=== PATIENT | female | born 1950 | race Caucasian/White ===

== ENCOUNTER 2017-08-23 14:22 | Inpatient (IN) | payer OTHER ==
[~2017-08-23] VITALS: Ht 157.5 cm; Wt 105.7 kg
[2017-08-23 14:29] VITALS: BP 157/78
--- NOTE | 2017-08-23 14:30 | NUR ---
Patient ambulated to bed 08.
--- NOTE | 2017-08-23 14:34 | NUR ---
67/F BIB DAUGHTER IN LAW PT REFERRED TO ER PER PCP FOR EVALUATION OF CHEST PAIN X1 DAY. PT STS FELT ACUTE SHARP CHEST PAIN TO MID CHEST THEN TO LEFT CHEST LAST NIGHT WHILE GETTING READY FOR BED. PT DENIES PAIN AT THIS TIME. VSS. BG 64 MG/DL. ER MD MADE AWARE. ORANGE JUICE GIVEN TO PT. LUNG SOUNDS DIMISHED. ANASARCA NOTED WITH 2+ EDEMA TO BLE. HX DM, HTN, CKD, S/P CVA 5 MONTHS AGO.
--- NOTE | 2017-08-23 14:50 | NUR ---
Dr. Banegas evaluating patient at bedside.
[2017-08-23] MEDS ORDERED: ASPIRIN 81 MG TAB.CHEW PO ONE (14:55)
--- NOTE | 2017-08-23 15:07 | NUR ---
XRAY at bedside.
[2017-08-23 15:12] LABS: BASOPHILS # (AUTO) 0.2 K/uL (0.00-0.22); BASOPHILS % (AUTO) 2.2 % (0.0-2.0); EOSINOPHILS # (AUTO) 0.4 K/uL (0-0.4); HEMATOCRIT 33.3 % (36-48); HEMOGLOBIN 10.9 g/dL (12.0-16.0); LYMPHOCYTES # (AUTO) 2.4 K/uL (2.5-16.5); LYMPHOCYTES % (AUTO) 22.3 % (20.5-51.1); MEAN CORPUSCULAR HEMOGLOBIN 26 pg (27-31); MEAN CORPUSCULAR HGB CONC 33 g/dL (33-37); MEAN CORPUSCULAR VOLUME 80 fL (80-94); MONOCYTES # (AUTO) 0.9 K/uL (0.8-1.0); MONOCYTES % (AUTO) 8.1 % (1.7-9.3); NEUTROPHILS # (AUTO) 6.9 K/uL (1.8-7.7); NEUTROPHILS % (AUTO) 63.4 % (42.2-75.2); PLATELET COUNT (AUTO) 322 K/uL (140-450); RED BLOOD CELL COUNT(AUTO) 4.19 MIL/uL (4.20-5.40); RED CELL DISTRIBUTION WIDTH 16.7 % (11.6-13.7); WHITE BLOOD COUNT (AUTO) 10.8 K/uL (4.8-10.8)
[2017-08-23 15:25] LABS: ANION GAP 13.5 (8-16); CARBON DIOXIDE 20.6 mmol/L (21-32); CREATININE 2.6 mg/dL (0.6-1.3); POTASSIUM 5.1 mmol/L (3.5-5.1)
[2017-08-23 15:33] LABS: ALBUMIN 2.5 g/dL (3.4-5.0); TOTAL BILIRUBIN 0.1 mg/dL (0.0-1.0)
[2017-08-23] MEDS ORDERED: LORazepam 2 MG/ML VIAL IVP PRN (15:45)
[2017-08-23] MEDS ORDERED: INSULIN LISPRO SLIDING SCALE 100 UNITS/ML VIAL SUBQ PRN (15:45)
[2017-08-23] MEDS ORDERED: ONDANSETRON 4 MG/2 ML VIAL IVP PRN (15:45)
[2017-08-23] MEDS ORDERED: DEXTROSE 50% 50 ML SYR IVP PRN (15:45)
[2017-08-23] MEDS ORDERED: ACETAMINOPHEN 325 MG TAB PO PRN (15:45)
[2017-08-23] MEDS ORDERED: HYDROcodone/APAP 5/325 MG 1 TAB TAB PO PRN (15:45)
[2017-08-23] MEDS ORDERED: METO25TA PO (15:58)
[2017-08-23] MEDS ORDERED: FURO-572 PO (15:58)
[2017-08-23] MEDS ORDERED: GLIP5TAB4 PO (15:58)
[2017-08-23] MEDS ORDERED: AMLO10TA PO (15:58)
[2017-08-23] MEDS ORDERED: WARF1TAB PO (15:58)
--- NOTE | 2017-08-23 16:20 | NUR ---
Patient will be admitted to care of DR. RIZO. Admited to 124-B. Will go to room 124-B. Belongings list completed. Report to LIV HERNADEZ.
[2017-08-23 16:30] VITALS: BP 141/64
--- NOTE | 2017-08-23 16:30 | NUR ---
RECEIVED PT FROM ER ASSISTED BY ER NURSE PER CARRIE. ASSISTED PT WITH WALKER GOING TO HER BED. PT AMBULATED STEADILY WITH WALKER, WITH STANDBY ASSIST. PT LAID ON BED SAFELY AND COMFORTABLY. GENERALIZED EDEMA NOTED. NO SOB NOTED. DENIES ANY PAIN RO DISCOMFORT AT THIS TIME. PT AMBULATORY WITH WALKER. PT PLACED ON FALL RISK PRECAUTION. SAFETY PRECAUTION IN PLACE. CALL LIGHT WITHIN REACH.
[2017-08-23] MEDS: NACL 0.9% 1,000 ML IV SCH (16:45)
[2017-08-23] MEDS: BLOOD GLUCOSE MONITORING 1 DEV DEV FS SCH ×2 (16:53→21:03)
--- NOTE | 2017-08-23 19:28 | NUR ---
PT KEPT CLEAN, DRY AND COMFORTABLE, NEEDS ATTENDED. ENDORSED TO NEXT SHIFT, PT ON STABLE CONDITION, FOR CONTINUITY OF CARE.
--- NOTE | 2017-08-23 19:35 | NUR ---
RECEIVED REPORT FROM DAY RN. PATIENT AWAKE ALERT ORIENTED X4, NO S/S OF ACUTE DISTRESS NOTED, RESPIRATION EVEN AND UNLABORED, AND ON O2 NC 2L. IV PATENT AND INTACT, INFUSING NS AT 75ML/HR. NOTED PATIENT WEARING HER OWN SOCKS, OFFERED HOSPITAL NON-SLIP SOCKS, PATIENT REFUSED TAKING OFF HER OWN SOCKS AND STATED," MY FEET ARE VERY DRY, I DON'T WANT TO TAKE OFF MY SOCKS, I CAN WEAR THE HOSPITAL SOCKS OVER MY OWN SOCKS." EDUCATED PATIENT THAT PER HOSPITAL POLICY I NEED TO CHECK HER SKIN. PATIENT STILL REFUSED AND STATED," NO, I DON'T WANT TO TAKE OFF MY SOCKS, I DON'T WANT YOU TAKE OFF MY SOCKS." INFORMED PATIENT TO CALL FOR ASSISTANCE WHENEVER SHE NEEDS TO USE RESTROOM. PATIENT VERBALIZED UNDERSTANDING. CALL LIGHT WITHIN REACH, SAFETY MEASURE ENSURED, WILL CONTINUE TO MONITOR.
[2017-08-23 20:00] VITALS: BP 127/103
[2017-08-23] MEDS: METOPROLOL 25 MG TAB PO SCH (21:08)
[2017-08-23] MEDS: amLODIPine 5 MG TAB PO SCH (21:09)
[2017-08-23 23:29] LABS: CREATINE KINASE MB 0.6 ng/mL (0-3.6)
[2017-08-24] VITALS (7 sets, daily range): BP systolic 90–181; BP diastolic 62–88
[2017-08-24] MEDS: HYDROcodone/APAP 5/325 MG 1 TAB TAB PO PRN ×2 (00:01→14:51)
--- NOTE | 2017-08-24 00:32 | NUR ---
PATIENT USED RESTROOM, AND STATED," I WANT TO SIT ON THE CHAIR FOR A LITTLE BIT." SITTING ON THE CHAIR ABOUT 20 MINS, WHILE ASSISTING PATIENT BACK TO THE BED, EDEMA BOTH FEET PITTING +2 NOTED, ELEVATED BOTH LEGS ON TWO PILLOWS. WILL CONTINUE TO MONITOR.
--- NOTE | 2017-08-24 00:33 | NUR ---
PATIENT BP 181/81, HR 71, PAGED DR. RIZO. WILL CONTINUE TO MONITOR.
--- NOTE | 2017-08-24 00:40 | NUR ---
ARUN CALLED BACK, INFORMED DR DIAS THAT BP 181/81, HR 71, RECEIVED ORDER OF HYDRALAZINE 25MG, PO, ONCE. ORDER READ BACK, DR. DIAS CONFIRMED.
[2017-08-24] MEDS ORDERED: hydrALAZINE 25 MG TAB PO SCH ×2 (01:00→09:00)
--- NOTE | 2017-08-24 01:51 | NUR ---
BP 145/71, HR 61. PATIENT IS SLEEPING AT THIS TIME. NO S/S OF ACUTE DISTRESS NOTED, RESPIRATION EVEN AND UNLABORED, CALL LIGHT WITHIN REACH, SAFETY MEASURE ENSURED, WILL CONTINUE TO MONITOR.
--- NOTE | 2017-08-24 02:58 | NUR ---
NO CHANGE IN CONDITION, NO S/S OF DISTRESS NOTED, RESPIRATION EVEN AND UNLABORED, REPOSITIONED PATIENT WITH THE APPLICATIONS SYSTEM ANALYST, CALL LIGHT WITHIN REACH, SAFETY MEASURE ENSURED ,WILL CONTINUE TO MONITOR.
--- NOTE | 2017-08-24 04:27 | NUR ---
PATIENT IS SLEEPING, EASY TO AROUSE, NO S/S OF DISTRESS NOTED, RESPIRATION EVEN AND UNLABORED, CALL LIGHT WITHIN REACH, SAFETY MEASURE ENSURED ,WILL CONTINUE TO MONITOR.
[2017-08-24] MEDS: NACL 0.9% 1,000 ML IV SCH ×2 (04:52→18:24)
[2017-08-24] MEDS: BLOOD GLUCOSE MONITORING 1 DEV DEV FS SCH ×4 (06:37→21:07)
[2017-08-24 06:43] LABS: BASOPHILS # (AUTO) 0.2 K/uL (0.00-0.22); BASOPHILS % (AUTO) 2.2 % (0.0-2.0); EOSINOPHILS # (AUTO) 0.6 K/uL (0-0.4); EOSINOPHILS % (AUTO) 6.2 % (0.0-4.0); HEMATOCRIT 29.6 % (36-48); HEMOGLOBIN 9.3 g/dL (12.0-16.0); LYMPHOCYTES # (AUTO) 2.1 K/uL (2.5-16.5); LYMPHOCYTES % (AUTO) 22.9 % (20.5-51.1); MEAN CORPUSCULAR HEMOGLOBIN 25 pg (27-31); MEAN CORPUSCULAR HGB CONC 32 g/dL (33-37); MEAN CORPUSCULAR VOLUME 80 fL (80-94); MONOCYTES # (AUTO) 0.8 K/uL (0.8-1.0); NEUTROPHILS # (AUTO) 5.3 K/uL (1.8-7.7); NEUTROPHILS % (AUTO) 59.7 % (42.2-75.2); PLATELET COUNT (AUTO) 277 K/uL (140-450); RED BLOOD CELL COUNT(AUTO) 3.72 MIL/uL (4.20-5.40); RED CELL DISTRIBUTION WIDTH 16.7 % (11.6-13.7)
--- NOTE | 2017-08-24 07:01 | NUR ---
NO CHANGE IN CONDITION, NO S/S OF DISTRESS NOTED, RESPIRATION EVEN AND UNLABORED, CALL LIGHT WITHIN REACH, SAFETY MEASURE ENSURED ,WILL CONTINUE TO MONITOR.
[2017-08-24 07:07] LABS: ANION GAP 10.1 (8-16); CARBON DIOXIDE 21.3 mmol/L (21-32); CREATININE 2.5 mg/dL (0.6-1.3); MAGNESIUM 1.9 mg/dL (1.8-2.4); POTASSIUM 5.4 mmol/L (3.5-5.1); TOTAL BILIRUBIN 0.1 mg/dL (0.0-1.0)
[2017-08-24 07:20] LABS: CREATINE KINASE MB 0.5 ng/mL (0-3.6)
--- NOTE | 2017-08-24 07:35 | NUR ---
ENDORSED PLAN OF CARE TO DAY RN. PATIENT IS IN STABLE CONDITION. NO S/S OF DISTRESS NOTED.
--- NOTE | 2017-08-24 07:40 | NUR ---
RECEIVED REPORT FROM WASTE WATER OPERATOR NURSE PT IS RESTING IN BED, A/OX4, AMBULATES WITH WALKER, PT HAS IV ON THE RT AC, PATENT, INTACT, FLUSHING WELL, PT IS ON O2 2L NC, DRYNESS ON BILATERAL LOWER FEET, BILATERAL LOWER EXT. PITTING EDEMA, NO S/S OF RESPIRATORY DISTRESS OR DISCOMFORT NOTED, DISCUSSED PLAN OF CARE WITH PT, PT VERBALIZED UNDERSTANDING, SAFETY/FALL PRECAUTIONS ARE IN PLACE, CALL LIGHT WITHIN REACH, WILL CONTINUE TO MONITOR.
[2017-08-24] MEDS ORDERED: REGADENOSON 0.4 MG/5 ML SYR IV SCH (08:55)
[2017-08-24] MEDS ORDERED: SODIUM POLYSTYRENE 15 GM/60 ML UDBTL PO SCH (09:00)
[2017-08-24] MEDS ORDERED: FUROSEMIDE 20 MG TAB PO SCH (09:00)
[2017-08-24] MEDS: ASPIRIN 81 MG TAB.CHEW PO SCH (09:06)
[2017-08-24] MEDS: METOPROLOL 25 MG TAB PO SCH ×2 (09:06→21:08)
--- NOTE | 2017-08-24 09:09 | NUR ---
PATIENT HAS BEEN SCREENED AND CATEGORIZED HIGH NUTRITION RISK. PATIENT WILL BE SEEN WITHIN 1-2 DAYS OF ADMISSION. 08/24/17-08/25/[address]
--- NOTE | 2017-08-24 09:44 | NUR ---
I CALLED DR. KULKARNI TO LET HIM KNOW DR. RIZO HAD ORDERED A LEXISCAN/STRESS TEST ORDERED TO HAVE DONE TODAY. PER DR. KULKARNI CONFIRM WITH SITE SPECIALIST AND ASK IF THEY ARE AVAILABLE FOR TODAY BETWEEN 12:30-12:45PM.
--- NOTE | 2017-08-24 10:20 | NUR ---
RECEIVED PHONE CALL FROM REINIER HERNANDEZ AT [facility]. PER DAVID SHE IS NOT AVAILABLE TO COME IN TO DO THE LEXISCAN TEST TODAY AND SHE ALSO WOULD NOT HAVE THE DOSE AVAILABLE UNTIL AFTER 1330 TODAY.
--- NOTE | 2017-08-24 10:38 | NUR ---
PATIENT STATED SHE WAS FEELING NAUSEAS AND FELT LIKE SHE NEEDED TO VOMIT. PT WAS MEDICATED WITH ZOFRAN FOR NAUSEA AND VOMITING AT THIS TIME.
--- NOTE | 2017-08-24 10:55 | NUR ---
PAGED DR. RIZO TO LET HER KNOW THERE WAS NOT A SPIKE MACHINE OPERATOR AVAILABLE TO COME IN AND DO THE LEXISCAN TEST DONE TODAY. I ALSO LET HER KNOW THE PATIENT WAS FEELING NAUSEAS/DIZZY AND WAS REQUESTING TO HAVE SOMETHING TO EAT. PER DR. RIZO PUT PT ON [facility] DIET FOR NOW. DR. RIZO REQUEST TO SPEAK TO CHARGE NURSE.
--- NOTE | 2017-08-24 11:03 | NUR ---
08/24/17 RD INITIAL ASSESSMENT COMPLETED PLEASE REFER TO NUTRITION ASSESSMENT UNDER CARE ACTIVITY FOR ESTIMATED NUTRITIONAL NEEDS. 1. WHEN MEDICALLY FEASIBLE, RESUME PO DIET - RENAL 60G PROTEIN, 60G CONSISTENT CARBOHYDRATE DIET 2. PROVIDE NUTRITION THERAPY EDUCATION NEEDED 3. RD TO FOLLOW-UP 2-3 DAYS, HIGH RISK DIE[address]
--- NOTE | 2017-08-24 11:30 | NUR ---
PAGED DR. RIZO TO LET HER KNOW THE PATIENT IS REFUSING TO HAVE LEXISCAN DONE TODAY, PT STATED SHE IS FEELING NAUSEAS AND DIZZY SO WOULD RATHER HAVE IT DONE TOMORROW. I ALSO SPOKED TO AYESHA, HYDROMETEOROLOGIST TO LET HER KNOW PATIENT WOULD RATHER HAVE LEXISCAN DONE TOMORROW. AYESHA, SAID SHE HAD INFORMED DR. RIZO THE PATIENT WAS REFUSING TO HAVE LEXISCAN DONE TODAY.
--- NOTE | 2017-08-24 13:17 | NUR ---
[address] RIZO REGARDING IF LEXISCAN WILL BE DONE TODAY. INFORMED HER I WILL CONTACT RADIOLOGY. PER DENISE IN RADIOLOGY SHE WILL CONTACT [facility] REGARDING SCHEDULE. 1130 INFORMED BY NURSING THAT PT IS REFUSING LEXISCAN TODAY SHE IS C/O NAUSEA AND DIZZINESS. PER DENISE IN RADIOLOGY SHE HAS PT SCHEDULED TOMORROW AT 11AM. DR RIZO INFORMED OF PTS REFUSAL OF SCAN TODAY DUE TO NAUSEA AND DIZZINESS AND THAT LEXISCAN IS SCHEDULED TOMORROW AT 11AM.
--- NOTE | 2017-08-24 13:22 | NUR ---
FAXED INITIAL REVIEW TO [facility] [phone] PHONE [phone]
--- NOTE | 2017-08-24 16:00 | NUR ---
PAGED DR. RIZO TO LET HER KNOW THE PATIENT'S BLOOD PRESSURE HAS BEEN 181/88. 181/81 AND HAS NOT CAME DOWN. PER DR. RIZO CHANGE THE HYDRALAZINE 25MG ORDER TO TID INSTEAD OF BID AND GIVE ONE DOSE NOW.
[2017-08-24] MEDS: hydrALAZINE 25 MG TAB PO SCH (17:21)
--- NOTE | 2017-08-24 18:45 | NUR ---
PATIENT BLOOD PRESSURE 147/62, HR:67, NO S/S OF RESPIRATORY DISTRESS OR DISCOMFORT NOTED, FAMILY IS AT BEDSIDE.
--- NOTE | 2017-08-24 19:25 | NUR ---
ENDORSED PT TO SCRUB WOMAN NURSE FOR CONTINUITY OF CARE, PT STABLE AT THIS TIME. DR. KULKARNI IS AT PT BEDSIDE.
--- NOTE | 2017-08-24 19:53 | NUR ---
RECEIVED FROM ANOTHER RN FOR CONTINUITY OF CARE. AWAKE AND ALERT. ABLE TO VERBALIZE NEEDS WELL TELEMETRY MONITORING. NO SOB. DENIES ANY CHEST PAIN AT THIS TIME. CALL LIGHT WITH IN REACH. TELEMETRY MONITORING. IVF SITE TO RAC#20 INTACT AND NO INFILTRATION.
--- NOTE | 2017-08-24 20:35 | NUR ---
MD KULKARNI MANAGER PHARMACY IN HERE TO SEE PT. AND DISCONTINUED LEXISCAN ORDER.
[2017-08-24] MEDS: amLODIPine 5 MG TAB PO SCH (21:07)
[2017-08-25 04:00] VITALS: BP 156/68
--- NOTE | 2017-08-25 04:40 | NUR ---
SLEEPING WELL THIS SHIFT. NO COMPLAINTS DONE. ON TELEMETRY MONITORING. CALL LIGHT AT BEDSIDE WITH IN REACH. NO CHEST PAIN COMPLAINTS DONE.
[2017-08-25] MEDS: BLOOD GLUCOSE MONITORING 1 DEV DEV FS SCH ×2 (06:28→11:45)
--- NOTE | 2017-08-25 07:35 | NUR ---
ENDORSED TO THE NEXT RN FOR CONTINUITY OF CARE AWAKE AND ALERT. NO SOB. DENIES ANY CHEST PAIN THIS SHIFT. USES CALL LIGHT FOR HELP. TELEMETRY MONITORING.
[2017-08-25] MEDS: NACL 0.9% 1,000 ML IV SCH (07:44)
[2017-08-25 08:00] VITALS: BP 135/72
[2017-08-25] MEDS: METOPROLOL 25 MG TAB PO SCH (09:00)
[2017-08-25] MEDS: hydrALAZINE 25 MG TAB PO SCH ×2 (09:00→13:00)
[2017-08-25] MEDS ORDERED: AMLO10TA PO (09:05)
[2017-08-25] MEDS: ASPIRIN 81 MG TAB.CHEW PO SCH (09:29)
--- NOTE | 2017-08-25 09:31 | NUR ---
DR RIZO AT BEDSIDE FOR EVAL, BP MEDS HELD FOR 135/72, HR 62, PER DR RIZO, SCHEDULED ASPIRIN GIVEN, DOLORES WELL. WILL CONTINUE TO MONITOR.
--- NOTE | 2017-08-25 11:39 | NUR ---
PT C/O NECK/BACK OF HEAD PAIN 3-02/05, NORCO GIVEN PER PRN ORDER.
[2017-08-25 11:45] LABS: BASOPHILS # (AUTO) 0.1 K/uL (0.00-0.22); BASOPHILS % (AUTO) 1.5 % (0.0-2.0); EOSINOPHILS # (AUTO) 0.4 K/uL (0-0.4); EOSINOPHILS % (AUTO) 4.8 % (0.0-4.0); HEMATOCRIT 31.4 % (36-48); LYMPHOCYTES # (AUTO) 1.7 K/uL (2.5-16.5); LYMPHOCYTES % (AUTO) 20.6 % (20.5-51.1); MEAN CORPUSCULAR HEMOGLOBIN 25 pg (27-31); MEAN CORPUSCULAR HGB CONC 32 g/dL (33-37); MEAN CORPUSCULAR VOLUME 79 fL (80-94); MONOCYTES # (AUTO) 0.5 K/uL (0.8-1.0); MONOCYTES % (AUTO) 6.3 % (1.7-9.3); NEUTROPHILS # (AUTO) 5.6 K/uL (1.8-7.7); NEUTROPHILS % (AUTO) 66.8 % (42.2-75.2); PLATELET COUNT (AUTO) 305 K/uL (140-450); RED BLOOD CELL COUNT(AUTO) 3.96 MIL/uL (4.20-5.40); RED CELL DISTRIBUTION WIDTH 16.6 % (11.6-13.7); WHITE BLOOD COUNT (AUTO) 8.3 K/uL (4.8-10.8)
[2017-08-25 12:00] VITALS: BP 138/82
[2017-08-25 12:16] LABS: ANION GAP 9.6 (8-16); CARBON DIOXIDE 23.1 mmol/L (21-32); CREATININE 2.4 mg/dL (0.6-1.3); POTASSIUM 4.7 mmol/L (3.5-5.1)
--- NOTE | 2017-08-25 13:56 | NUR ---
DUE MEDS GIVEN, PT STATE STROUD/NECK PAIN HAS IMPROVED AFTER NORCO, DISCUSSED DISCHARGE INSTRUCTION, AWAITING DAUGHTER TO COME PICK HER UP FOR DC HOME.
--- NOTE | 2017-08-25 15:45 | NUR ---
DC INSTRUCTION GIVEN AND EXPLAINED TO PT AND DAUGHTER, PT DECLINED USE OF TELEPHONE ECOLOGICAL ECONOMIST, PT AND DAUGHTER VERBALIZED FULL UNDERSTANDING, MEDICATIONS RECONCILIATION AND CHANGES DISCUSSED IN LENGTH, PT VERBALIZED UNDERSTANDING, IV DC'D, CATH TIP INTACT, BLEEDING CONTROLLED, UP UP OUT OF BED, WALKS WITH WALKER WITHOUT PROBLEM, PT ESCORTED TO FRONT LOBBY IN WHEEL CHAIR, DC HOME NOW WITH DAUGHTER.
== END 2017-08-25 15:45 | disposition home or self-care (01) | DRG 199 ==
LOC: MED 14:22 → MTU 15:53
PROVIDERS: ADMIT Hospitalist; ATTEND Hospitalist
DX: I16.0 Hypertensive urgency (principal); E11.22 Type 2 diabetes mellitus with diabetic chronic kidney disease; E11.649 Type 2 diabetes mellitus with hypoglycemia without coma; N18.3 Chronic kidney disease, stage 3 (moderate); I12.9 Hypertensive chronic kidney disease with stage 1 through stage 4 chronic kidney disease, or unspecified chronic kidney disease; E78.00 Pure hypercholesterolemia, unspecified; K21.9 Gastro-esophageal reflux disease without esophagitis; E66.9 Obesity, unspecified; Z79.01 Long term (current) use of anticoagulants; Z86.73 Personal history of transient ischemic attack (TIA), and cerebral infarction without residual deficits; Z79.82 Long term (current) use of aspirin; Z79.4 Long term (current) use of insulin; Z79.899 Other long term (current) drug therapy; Z68.41 Body mass index [BMI] 40.0-44.9, adult; Z91.19 Patient's noncompliance with other medical treatment and regimen
CPT/HCPCS: 36415; 71010; 80048; 80053; 82550; 82553; 82948; 83735; 83880; 84484; 85025; 85379; 85610; 85730; 87081; 93005; 99285; J1644; J1815; J2405; J2785; J7030; Q0092

== ENCOUNTER 2017-10-01 18:10 | Inpatient (IN) | payer OTHER ==
[~2017-10-01] VITALS: Ht 160 cm; Wt 108.9 kg
[~2017-10-01 18:10] MED LIST: AMLO10TA PO; METO25TA PO; WARF1TAB PO
[2017-10-01 18:57] VITALS: BP 174/91
--- NOTE | 2017-10-01 19:15 | NUR ---
PT.AMBULATES TO ER BED 1
[2017-10-01 19:29] LABS: BASOPHILS # (AUTO) 0.1 K/uL (0.00-0.22); BASOPHILS % (AUTO) 1.2 % (0.0-2.0); EOSINOPHILS # (AUTO) 0.3 K/uL (0-0.4); EOSINOPHILS % (AUTO) 3.2 % (0.0-4.0); HEMATOCRIT 31.3 % (36-48); LYMPHOCYTES # (AUTO) 1.4 K/uL (2.5-16.5); LYMPHOCYTES % (AUTO) 17.4 % (20.5-51.1); MEAN CORPUSCULAR HEMOGLOBIN 26 pg (27-31); MEAN CORPUSCULAR HGB CONC 32 g/dL (33-37); MEAN CORPUSCULAR VOLUME 80 fL (80-94); MONOCYTES # (AUTO) 0.4 K/uL (0.8-1.0); MONOCYTES % (AUTO) 5.3 % (1.7-9.3); NEUTROPHILS # (AUTO) 6.1 K/uL (1.8-7.7); NEUTROPHILS % (AUTO) 72.9 % (42.2-75.2); PLATELET COUNT (AUTO) 292 K/uL (140-450); RED CELL DISTRIBUTION WIDTH 17.3 % (11.6-13.7); WHITE BLOOD COUNT (AUTO) 8.3 K/uL (4.8-10.8)
--- NOTE | 2017-10-01 19:30 | NUR ---
Patient being evaluated by DR. GILMORE at bedside.
--- NOTE | 2017-10-01 19:30 | NUR ---
67Y/F PT REFERRED TO ER FROM PCP FOR EVALUATION OF ABNORMAL LABS, K+ 5.8. HX DM, HTN, KIDNEY FAILURE, CVA. AAO X4, AMBULATORY WITH STEADY GAIT. RESPIRATIONS ROOM AIR, EVEN AND UNLABORED. BL LUNG CLEAR. SKIN WARM AND DRY. VSS, NO S/SX OF DISTRESS AT THIS TIME. ER MD MADE AWARE OF PT. STATUS
[2017-10-01 19:45] LABS: ALBUMIN 2.5 g/dL (3.4-5.0); ANION GAP 14.2 (8-16); CARBON DIOXIDE 21.7 mmol/L (21-32); CREATININE 3.6 mg/dL (0.6-1.3); POTASSIUM 5.9 mmol/L (3.5-5.1); TOTAL BILIRUBIN 0.2 mg/dL (0.0-1.0)
[2017-10-01 20:17] LABS: CREATINE KINASE MB 1.8 ng/mL (0-3.6)
[2017-10-01] MEDS ORDERED: DEXTROSE 50% 50 ML SYR IVP ONE (20:25)
[2017-10-01] MEDS ORDERED: ALBUTEROL 0.083% 2.5 MG/3 ML NEBU INH ONE (20:25)
[2017-10-01] MEDS ORDERED: SODIUM POLYSTYRENE 15 GM/60 ML UDBTL PO ONE (20:25)
[2017-10-01] MEDS ORDERED: INSULIN HUMAN REGULAR 100 UNITS/ML 10 ML VIAL IVP ONE (20:25)
[2017-10-01] MEDS ORDERED: CALCIUM GLUCONATE 10% 1000 MG/10 ML VIAL IVP ONE (20:25)
[2017-10-01] MEDS ORDERED: INSULIN LISPRO SLIDING SCALE 100 UNITS/ML VIAL SUBQ PRN (20:45)
[2017-10-01] MEDS ORDERED: ONDANSETRON 4 MG/2 ML VIAL IVP PRN (20:45)
[2017-10-01] MEDS ORDERED: ACETAMINOPHEN 325 MG TAB PO PRN (20:45)
[2017-10-01] MEDS ORDERED: MORPHINE SULFATE 4 MG/ML SYR IVP PRN (20:45)
[2017-10-01] MEDS ORDERED: MORPHINE SULFATE 2 MG/ML SYR IVP PRN (20:45)
[2017-10-01 21:21] LABS: PROTHROMBIN TIME 13.3 secs (10.8-13.4)
--- NOTE | 2017-10-01 21:25 | NUR ---
Patient will be admitted to care of . Admited to M/S. Will go to [id number]. Belongings list completed. Report to LIV TOLEDO.
--- NOTE | 2017-10-01 21:33 | NUR ---
RECEIVED REPORT FROM ER AT BEDSIDE WITH PATIENT. PATIENT A&OX4. PATIENT DENIES PAIN. IV SITE PATENT AND INTACT. PATIENT ORIENTED TO ROOM. SAFETY MEASURES ENSURED. PATIENT IS SHAKY, BLOOD SUGAR IS 81. PATIENT'S SON TOOK PURSE AND BELONGINGS WITH HIM. WILL CONTINUE TO MONITOR.
[2017-10-01] MEDS: NACL 0.9% 1,000 ML IV SCH (22:37)
[2017-10-01] MEDS ORDERED: FUROSEMIDE 20 MG TAB ONE (23:17)
[2017-10-02] VITALS: BP 133/62
--- NOTE | 2017-10-02 01:45 | NUR ---
PATIENT RESTING IN BED. PATIENT DENIES PAIN. NO SIGNS OR SYMPTOMS OF ACUTE DISTRESS NOTED.C ALL LIGHT WITHIN REACH. WILL CONTINUE TO MONITOR.
--- NOTE | 2017-10-02 04:45 | NUR ---
PATIENT AWAKE IN BED. PATIENT VOICED CONCERN ABOUT HER DIAGNOSIS OF ANEMIA AND RENAL FAILURE. HANDOUTS PROVIDED WITH EDUCATION. PATIENT VERBALIZED UNDERSTANDING. PATIENT DENIES PAIN. NO SIGNS OR SYMPTOMS OF ACUTE DISTRESS NOTED. CALL LIGHT WITHIN REACH. WILL CONTINUE TO MONITOR.
[2017-10-02 07:07] LABS: BASOPHILS # (AUTO) 0.2 K/uL (0.00-0.22); EOSINOPHILS # (AUTO) 0.3 K/uL (0-0.4); EOSINOPHILS % (AUTO) 4.3 % (0.0-4.0); HEMATOCRIT 28.5 % (36-48); LYMPHOCYTES # (AUTO) 1.7 K/uL (2.5-16.5); LYMPHOCYTES % (AUTO) 22.4 % (20.5-51.1); MEAN CORPUSCULAR HEMOGLOBIN 26 pg (27-31); MEAN CORPUSCULAR HGB CONC 32 g/dL (33-37); MEAN CORPUSCULAR VOLUME 80 fL (80-94); MONOCYTES # (AUTO) 0.7 K/uL (0.8-1.0); MONOCYTES % (AUTO) 9.7 % (1.7-9.3); NEUTROPHILS # (AUTO) 4.8 K/uL (1.8-7.7); NEUTROPHILS % (AUTO) 61.6 % (42.2-75.2); PLATELET COUNT (AUTO) 226 K/uL (140-450); RED BLOOD CELL COUNT(AUTO) 3.55 MIL/uL (4.20-5.40); RED CELL DISTRIBUTION WIDTH 17.6 % (11.6-13.7); WHITE BLOOD COUNT (AUTO) 7.7 K/uL (4.8-10.8)
--- NOTE | 2017-10-02 07:19 | NUR ---
ENDORSED PLAN OF CARE TO AM RN. PATIENT IN STABLE CONDITION. SAFETY MEASURES ENSURED.
[2017-10-02 07:24] LABS: ALBUMIN 2.1 g/dL (3.4-5.0); ANION GAP 13.8 (8-16); CARBON DIOXIDE 20.1 mmol/L (21-32); CREATININE 3.4 mg/dL (0.6-1.3); MAGNESIUM 1.8 mg/dL (1.8-2.4); PHOSPHORUS 4.8 mg/dL (2.5-4.9); POTASSIUM 4.9 mmol/L (3.5-5.1); TOTAL BILIRUBIN 0.2 mg/dL (0.0-1.0)
--- NOTE | 2017-10-02 07:25 | NUR ---
ENDORSEMENT RECEIVED FROM FINISHER DENTURE NURSE. PATIENT'S RESPIRATION EVEN, UNLABOR. SKIN DRY AND WARM. CALL LIGHT WITHIN REACH. WILL CONTINUE TO MONITOR
[2017-10-02 08:00] VITALS: BP 152/72
[2017-10-02] MEDS: amLODIPine 5 MG TAB PO SCH (09:04)
[2017-10-02] MEDS: NACL 0.9% 1,000 ML IV SCH ×2 (10:01→23:21)
--- NOTE | 2017-10-02 10:01 | NUR ---
PATIENT HAS BEEN SCREENED AND CATEGORIZED HIGH NUTRITION RISK. PATIENT WILL BE SEEN WITHIN 1-2 DAYS OF ADMISSION. 10/02/17-10/03/[address]
--- NOTE | 2017-10-02 10:10 | NUR ---
PATIENT IS SLEEPING COMFORTABLY. RESPIRATION EVEN. NO DISTRESS NOTED AT THIS TIME. CALL LIGHT WITHIN REACH. WILL CONTINUE TO MONITOR
--- NOTE | 2017-10-02 11:41 | NUR ---
CM NOTE INITIAL REVIEW FAXED TO [facility] [phone] [place] # [phone]
--- NOTE | 2017-10-02 12:30 | NUR ---
PATIENT IS EATING LUNCH. RESPIRATION EVEN, UNLABOR. DENIED PAIN AT THIS TIME. CALL LIGHT WITHIN REACH. WILL CONTINUE TO MONITOR
--- NOTE | 2017-10-02 13:00 | NUR ---
NOTIFY DR. BARAHONA REGARDING LOW CALCIUM LEVEL.
--- NOTE | 2017-10-02 16:15 | NUR ---
PATIENT IS AWAKE, ALERT. RESPIRATION EVEN, UNLABOR. COMPLAINED OF HEADACHE /. WILL MEDICATE PER ORDER. VS AND BS WERE TAKEN. CALL LIGHT WITHIN REACH. WILL CONTINUE TO MONITOR
[2017-10-02] MEDS: BLOOD GLUCOSE MONITORING 1 DEV DEV FS SCH ×2 (16:26→20:49)
[2017-10-02 16:37] VITALS: BP 172/84
[2017-10-02 17:30] VITALS: BP 136/65
--- NOTE | 2017-10-02 18:48 | NUR ---
IV 22G WAS PLACED ON RIGHT FOREARM, FLUSHING WELL. PATIENT TOLERATED WELL
--- NOTE | 2017-10-02 19:02 | NUR ---
PATIENT IS AWAKE, ALERT. RESPIRATION EVEN, UNLABOR. NO DISTRESS NOTED. IV INFUSING WELL. CALL LIGHT WITHIN REACH. WILL CONTINUE TO MONITOR
--- NOTE | 2017-10-02 19:18 | NUR ---
ENDORSEMENT GIVEN TO THE BARREL TURNER NURSE. PATIENT IS STABLE AT THIS TIME.
--- NOTE | 2017-10-02 19:30 | NUR ---
ASSUMED CARE OF PATIENT, AWAKE, ALERT AND ORIENTED. NO COMPLAINS. CALL LIGHT WITHIN REACH.
--- NOTE | 2017-10-02 20:15 | NUR ---
CARE BOARD UPDATED. NO COMPLAINS. PLAN OF CARE DISCUSSED WITH PATIENT, VERBALIZED UNDERSTANDING WELL. CALL LIGHT WITHIN REACH.
[2017-10-02] MEDS ORDERED: FUROSEMIDE 20 MG TAB PO ONE (21:00)
--- NOTE | 2017-10-02 21:00 | NUR ---
DUE MEDS GIVEN. NO INSULIN NEEDED. HS SNACK GIVEN. CALL LIGHT WITHIN REACH.
[2017-10-02 23:50] VITALS: BP 129/63
--- NOTE | 2017-10-02 23:51 | NUR ---
SLEEPING WELL. NO COMPLAINS. AFEBRILE. VITAL SIGNS STABLE. CALL LIGHT WITHIN REACH.
--- NOTE | 2017-10-03 06:05 | NUR ---
SLEEPING WELL. NO COMPLAINS. CALL LIGHT WITHIN REACH.
[2017-10-03] MEDS: BLOOD GLUCOSE MONITORING 1 DEV DEV FS SCH ×2 (06:15→11:39)
[2017-10-03 07:15] LABS: BASOPHILS # (AUTO) 0.1 K/uL (0.00-0.22); BASOPHILS % (AUTO) 1.5 % (0.0-2.0); EOSINOPHILS # (AUTO) 0.4 K/uL (0-0.4); EOSINOPHILS % (AUTO) 4.5 % (0.0-4.0); HEMATOCRIT 27.4 % (36-48); HEMOGLOBIN 8.7 g/dL (12.0-16.0); MEAN CORPUSCULAR HEMOGLOBIN 26 pg (27-31); MEAN CORPUSCULAR HGB CONC 32 g/dL (33-37); MEAN CORPUSCULAR VOLUME 80 fL (80-94); MONOCYTES # (AUTO) 0.8 K/uL (0.8-1.0); MONOCYTES % (AUTO) 9.5 % (1.7-9.3); NEUTROPHILS # (AUTO) 4.7 K/uL (1.8-7.7); NEUTROPHILS % (AUTO) 59.5 % (42.2-75.2); PLATELET COUNT (AUTO) 239 K/uL (140-450); RED BLOOD CELL COUNT(AUTO) 3.42 MIL/uL (4.20-5.40); RED CELL DISTRIBUTION WIDTH 17.3 % (11.6-13.7)
--- NOTE | 2017-10-03 07:33 | NUR ---
ENDORSED CARE WITH JANNETTE RN, PATIENT IN STABLE CONDITION.
--- NOTE | 2017-10-03 07:37 | NUR ---
RECEIVED REPORT FROM BIBLE WORKER NURSE, PT IS RESTING IN BED, A/OX4, AMBULATORY, NO S/S OR RESPIRATORY DISTRESS OR DISCOMFORT NOTED, IV IS ON THE RIGHT FA, PATENT, INTACT, FLUSHING WELL, SKIN IS INTACT, DISCUSSED PLAN OF CARE WITH PT, PT VERBALIZED UNDERSTANDING, SAFETY/FALL PRECAUTIONS ARE IN PLACE, CALL LIGHT IS WITHIN REACH, WILL CONTINUE TO MONITOR.
[2017-10-03 08:00] VITALS: BP 165/85
[2017-10-03 08:12] LABS: ANION GAP 15.2 (8-16); CARBON DIOXIDE 19.4 mmol/L (21-32); CREATININE 3.4 mg/dL (0.6-1.3); PHOSPHORUS 4.8 mg/dL (2.5-4.9); POTASSIUM 4.6 mmol/L (3.5-5.1)
[2017-10-03] MEDS: amLODIPine 5 MG TAB PO SCH (08:39)
--- NOTE | 2017-10-03 08:39 | NUR ---
DUE MEDICATIONS GIVEN, PT TOLERATED WELL, CALL LIGHT IS WITHIN REACH.
--- NOTE | 2017-10-03 10:30 | NUR ---
DR. ADAIR IN PATIENT'S ROOM TALKING WITH PATIENT.
--- NOTE | 2017-10-03 10:40 | NUR ---
PER PATIENT SHE CALLED HER DAUGHTER IN LAW TO PICK HER UP BUT WILL NOT BE ABLE TO PICK HER UP UNTIL 1600.
--- NOTE | 2017-10-03 13:31 | NUR ---
CM NOTE CONCURRENT REVIEW FAXED TO [facility] [phone] [place] # [phone]
--- NOTE | 2017-10-03 13:50 | NUR ---
DISCHARGE INFORMATION TO PATIENT. IV REMOVED. CATHETER INTACT. PATIENT STABLE UPON DISCHARGE. ACCOMPANY BY FAMILY MEMBER. ID WRIST BAND REMOVED.
== END 2017-10-03 13:50 | disposition home or self-care (01) | DRG 425 ==
LOC: MED 18:10 → MTU 20:15
PROVIDERS: ADMIT Internal Medicine; ATTEND Internal Medicine
DX: E87.5 Hyperkalemia (principal); N17.9 Acute kidney failure, unspecified; E11.21 Type 2 diabetes mellitus with diabetic nephropathy; J44.9 Chronic obstructive pulmonary disease, unspecified; Z68.41 Body mass index [BMI] 40.0-44.9, adult; E11.22 Type 2 diabetes mellitus with diabetic chronic kidney disease; I12.9 Hypertensive chronic kidney disease with stage 1 through stage 4 chronic kidney disease, or unspecified chronic kidney disease; N18.4 Chronic kidney disease, stage 4 (severe); D63.1 Anemia in chronic kidney disease; E66.9 Obesity, unspecified; D64.9 Anemia, unspecified; Z86.73 Personal history of transient ischemic attack (TIA), and cerebral infarction without residual deficits; Z87.891 Personal history of nicotine dependence
CPT/HCPCS: 36415; 71010; 76770; 80053; 82040; 82435; 82550; 82553; 82565; 82728; 82947; 82948; 83540; 83735; 84100; 84132; 84295; 84484; 84520; 85025; 85610; 87081; 93005; 94640; 96374; 96375; 99285; J0610; J1644; J1815; J7030; J7613; Q0092

== ENCOUNTER 2017-11-05 13:47 | Inpatient (IN) | payer OTHER ==
[~2017-11-05] VITALS: Ht 160 cm; Wt 107.5 kg
[2017-11-05 13:50] VITALS: BP 192/87
--- NOTE | 2017-11-05 15:15 | NUR ---
58[place] [facility] [place], fatigue, and productive cough x 2 days, progressively getting worse. Pt denies any n/v/d, fevers, or cp. Pt is aox4, rr are even, labored, and tachypneic. Pt able to talk in full sentence. SOB upon rest. Pt positioned to comfort, bed down. NAD at this time. VSS. Will continue to monitor.
[2017-11-05] MEDS ORDERED: methylPREDNISolone SS 125 MG/2 ML VIAL IVP ONE (15:20)
[2017-11-05] MEDS ORDERED: ALBUTEROL 0.083% 2.5 MG/3 ML NEBU INH ONE (15:20)
[2017-11-05] MEDS ORDERED: IPRATROPIUM 0.02% 0.5 MG/2.5 ML NEBU INH ONE (15:20)
[2017-11-05 16:28] LABS: BASOPHILS # (AUTO) 0.1 K/uL (0.00-0.22); BASOPHILS % (AUTO) 0.8 % (0.0-2.0); EOSINOPHILS % (AUTO) 0.4 % (0.0-4.0); HEMATOCRIT 24.1 % (36-48); HEMOGLOBIN 7.7 g/dL (12.0-16.0); LYMPHOCYTES # (AUTO) 0.6 K/uL (2.5-16.5); LYMPHOCYTES % (AUTO) 6.1 % (20.5-51.1); MEAN CORPUSCULAR HEMOGLOBIN 26 pg (27-31); MEAN CORPUSCULAR HGB CONC 32 g/dL (33-37); MEAN CORPUSCULAR VOLUME 79 fL (80-94); MONOCYTES # (AUTO) 0.7 K/uL (0.8-1.0); MONOCYTES % (AUTO) 7.8 % (1.7-9.3); NEUTROPHILS # (AUTO) 8.2 K/uL (1.8-7.7); NEUTROPHILS % (AUTO) 84.9 % (42.2-75.2); PLATELET COUNT (AUTO) 203 K/uL (140-450); RED BLOOD CELL COUNT(AUTO) 3.03 MIL/uL (4.20-5.40); RED CELL DISTRIBUTION WIDTH 16.9 % (11.6-13.7); WHITE BLOOD COUNT (AUTO) 9.6 K/uL (4.8-10.8)
[2017-11-05 16:54] LABS: PROTHROMBIN TIME 12.1 secs (10.8-13.4)
--- NOTE | 2017-11-05 17:10 | NUR ---
Patient with no complaints at this time. Vital Signs within normal limits. Respirations even and unlabored.
[2017-11-05 17:15] LABS: ANION GAP 20.3 (8-16); CARBON DIOXIDE 15.6 mmol/L (21-32); POTASSIUM 4.9 mmol/L (3.5-5.1); TOTAL BILIRUBIN 0.3 mg/dL (0.0-1.0)
[2017-11-05 17:18] LABS: CREATININE 5.9 mg/dL (0.6-1.3)
[2017-11-05] MEDS ORDERED: LORazepam 2 MG/ML VIAL IVP PRN (18:05)
[2017-11-05] MEDS ORDERED: HYDROcodone/APAP 5/325 MG 1 TAB TAB PO PRN ×2 (18:05)
[2017-11-05] MEDS ORDERED: ALBUTEROL 0.083% 2.5 MG/3 ML NEBU IH PRN (18:05)
[2017-11-05] MEDS ORDERED: AZITHROMYCIN 500 MG in DEXTROSE 5% 250 ML IV ONE (18:10)
[2017-11-05] MEDS ORDERED: OSELTAMIVIR PHOSPHATE 75 MG CAP PO ONE (18:10)
[2017-11-05] MEDS ORDERED: cefTRIAXone 1,000 MG VIAL ONE (18:38)
--- NOTE | 2017-11-05 18:45 | NUR ---
Patient will be admitted to [facility]. Admited to Tele. Will go to room 112-b. Belongings list completed. Bedside report to LIV Wilson.
[2017-11-05] MEDS ORDERED: WARFARIN 1 MG TAB PO SCH (18:50)
[2017-11-05] MEDS ORDERED: ECOTRIN 81 MG TABEC PO ONE (19:00)
[2017-11-05] MEDS ORDERED: NITROGLYCERIN 2% 1 GM PKT TP SCH (19:00)
--- NOTE | 2017-11-05 19:08 | NUR ---
PT ARRIVED VIA GURNEY FROM ED, RECEIVED BEDSIDE REPORT FROM DAY SHIFT NURSE NATAN RN, PT STABLE, NO DISTRESS NOTED, IV TO L AC 22G SL, PATENT, PT ON 2LPM O2 VIA NC, NO SOB, INITIAL ASSESSMENT DONE, ALL SAFETY PRECAUTION MET, FAMILY BY BEDSIDE, CALL LIGHT WITHIN REACH, WILL CONTINUE TO MONITOR.
[2017-11-05 19:30] VITALS: BP 157/66
[2017-11-05] MEDS ORDERED: AZITHROMYCIN 500 MG INJ VIAL IV ONE (19:58)
[2017-11-05] MEDS: METOPROLOL 25 MG TAB PO SCH (20:25)
--- NOTE | 2017-11-05 20:32 | NUR ---
DUE MEDICATION GIVEN, PT TOLERATED WELL, NO DISTRESS NOTED, CALL LIGHT WITHIN REACH, WILL CONTINUE TO MONITOR.
[2017-11-05] MEDS ORDERED: DEXTROSE 50% 50 ML SYR IVP PRN (20:35)
[2017-11-05] MEDS: BLOOD GLUCOSE MONITORING 1 DEV DEV FS SCH (21:18)
[2017-11-05] MEDS: INSULIN LISPRO SLIDING SCALE 100 UNITS/ML VIAL SUBQ PRN (21:33)
[2017-11-06] VITALS: BP 139/63
--- NOTE | 2017-11-06 | NUR ---
CHECKED ON PT, PT SLEEPING, EASY TO AROUSE, V/S TAKEN, NO DISTRESS NOTED, STABLE, CALL LIGHT WITHIN REACH, WILL CONTINUE TO MONITOR.
[2017-11-06 00:45] LABS: CREATINE KINASE MB 1.4 ng/mL (0-3.6)
--- NOTE | 2017-11-06 02:24 | NUR ---
RECEIVED REPORT AT BEDSIDE FROM DAY SHIFT NURSE. PT A/OX4, ON 2L O2 VIA NASAL CANNULA. SKIN INTACT. MARCIO CATHETER TO RIGHT IJ. SAFETY PRECAUTIONS IN PLACE. UPDATED BOARD. VITAL SIGNS WITHIN NORMAL LIMITS. PT IN STABLE CONDITION, NO SIGNS OF DISTRESS NOTED. BED IN LOW POSITION, CALL LIGHT WITHIN REACH. WILL CONTINUE TO MONITOR.
[2017-11-06] MEDS ORDERED: INFLUENZA VIRUS VACCINE QUAD 0.5 ML SYR IMVAC PRN (03:00)
[2017-11-06] MEDS ORDERED: PNEUMOCOCCAL VACCINE 23 MCG/0.5 ML VIAL IMVAC PRN (03:00)
--- NOTE | 2017-11-06 03:52 | NUR ---
CHECKED ON PT, PT SLEEPING, EASY TO AROUSE, NO DISTRESS NOTED, REPORTED HAVING NO PAIN, NO SOB, CALL LIGHT WITHIN REACH, WILL CONTINUE TO MONITOR.
[2017-11-06 04:00] VITALS: BP 136/71
[2017-11-06] MEDS: BLOOD GLUCOSE MONITORING 1 DEV DEV FS SCH ×4 (06:33→20:43)
[2017-11-06] MEDS: INSULIN LISPRO SLIDING SCALE 100 UNITS/ML VIAL SUBQ PRN ×2 (06:38→12:05)
[2017-11-06] MEDS: ACETAMINOPHEN 325 MG TAB PO PRN ×2 (06:46→18:26)
--- NOTE | 2017-11-06 07:18 | NUR ---
GAVE BEDSIDE REPORT TO DAY SHIFT NURSE MARVIN PECK, ENDORSED PLAN OF CARE, PT STABLE, NO DISTRESS NOTED, CALL LIGHT WITHIN REACH.
--- NOTE | 2017-11-06 07:19 | NUR ---
RECEIVED REPORT FROM ARMAMENT INSTALLER NURSE AT BEDSIDE FOR CONTINUITY OF CARE. UPDATED BOARD. PT STABLE, NO DISTRESS NOTED, PATIENT DENIES PAIN. IV TO L AC 22G SL, PATENT, PT ON 2L O2 VIA NC, NO SOB. PATIENT HAS SCDS. SAFETY PRECAUTION IN PLACE, BED ON LOWEST SETTING, BED ALARM ON, CALL LIGHT WITHIN REACH, WILL CONTINUE TO MONITOR PATIENT.
[2017-11-06 08:00] VITALS: BP 133/53
[2017-11-06] MEDS: METOPROLOL 25 MG TAB PO SCH ×2 (08:24→20:45)
[2017-11-06] MEDS: amLODIPine 5 MG TAB PO SCH (08:24)
--- NOTE | 2017-11-06 08:30 | NUR ---
ADMINISTERED MORNING MEDICATIONS. PATIENT TOLERATED THEM WELL. SAFETY PRECAUTIONS IN PLACE, BED ON LOWEST SETTING, BED ALARM ON, CALL LIGHT WITHIN REACH. WILL CONTINUE TO MONITOR PATIENT.
[2017-11-06 09:11] LABS: BASOPHILS % (AUTO) 0.6 % (0.0-2.0); EOSINOPHILS # (AUTO) 0.1 K/uL (0-0.4); EOSINOPHILS % (AUTO) 0.7 % (0.0-4.0); HEMATOCRIT 27.6 % (36-48); HEMOGLOBIN 8.9 g/dL (12.0-16.0); LYMPHOCYTES # (AUTO) 0.7 K/uL (2.5-16.5); LYMPHOCYTES % (AUTO) 8.8 % (20.5-51.1); MEAN CORPUSCULAR HEMOGLOBIN 25 pg (27-31); MEAN CORPUSCULAR HGB CONC 32 g/dL (33-37); MEAN CORPUSCULAR VOLUME 79 fL (80-94); MONOCYTES # (AUTO) 0.3 K/uL (0.8-1.0); MONOCYTES % (AUTO) 4.1 % (1.7-9.3); NEUTROPHILS # (AUTO) 7.2 K/uL (1.8-7.7); NEUTROPHILS % (AUTO) 85.8 % (42.2-75.2); PLATELET COUNT (AUTO) 263 K/uL (140-450); RED BLOOD CELL COUNT(AUTO) 3.52 MIL/uL (4.20-5.40); RED CELL DISTRIBUTION WIDTH 16.9 % (11.6-13.7); WHITE BLOOD COUNT (AUTO) 8.3 K/uL (4.8-10.8)
[2017-11-06 09:53] LABS: PROTHROMBIN TIME 12.4 secs (10.8-13.4)
[2017-11-06 10:05] LABS: ALBUMIN 2.2 g/dL (3.4-5.0); ANION GAP 23.1 (8-16); CARBON DIOXIDE 12.6 mmol/L (21-32); MAGNESIUM 1.8 mg/dL (1.8-2.4); POTASSIUM 4.7 mmol/L (3.5-5.1); TOTAL BILIRUBIN 0.2 mg/dL (0.0-1.0)
[2017-11-06 10:09] LABS: CREATININE 6.2 mg/dL (0.6-1.3)
--- NOTE | 2017-11-06 10:40 | NUR ---
PATIENT HAS BEEN SCREENED AND CATEGORIZED MODERATE NUTRITION RISK. PATIENT WILL BE SEEN WITHIN 3-5 DAYS OF ADMISSION. 11/08/17 - 11/10/[address] Addendum: 11/07/17 at [address] PATIENT HAS BEEN RESCREENED AND RECATEGORIZED HIGH NUTRITION RISK. PATIENT WILL BE SEEN WITHIN 1-2 DAYS OF ADMISSION. [address]
[2017-11-06 11:25] LABS: APPEARANCE,URINE TURBID (CLEAR); BILIRUBIN,URINE NEGATIVE (NEGATIVE); BLOOD, URINE 1+ (NEGATIVE); COLOR,URINE YELLOW (YELLOW); LEUKOCYTE ESTERASE ,URINE NEGATIVE (NEGATIVE); NITRITE, URINE NEGATIVE (NEGATIVE); PH,URINE 5.5 (5.0-9.0); UGLUCOSE 1+ (NEGATIVE)
[2017-11-06 12:00] VITALS: BP 132/74
[2017-11-06] MEDS ORDERED: SODIUM BICARBONATE 650 MG TAB PO SCH (12:00)
[2017-11-06] MEDS ORDERED: FUROSEMIDE 40 MG/4 ML VIAL IVP SCH (12:00)
--- NOTE | 2017-11-06 12:00 | NUR ---
BLOOD GLUCOSE RESULT 276, INSULIN GIVEN. PATIENT TOLERATED IT WELL. PATIENT ASKED FOR EDUCATION HANDOUT ABOUT INSULIN, HANDOUTS ABOUT DIABETES AND INSULIN GIVEN. SAFETY PRECAUTIONS IN PLACE. CALL LIGHT WITHIN REACH. WILL CONTINUE TO MONITOR PATIENT.
[2017-11-06 13:24] LABS: RBC,URINE 3-10 (FEW) /HPF (0-5); WBC,URINE 0-5 (RARE) /HPF (0-5)
[2017-11-06 13:25] LABS: URINE AMORPHOUS URATE 2+ /HPF (None Seen)
--- NOTE | 2017-11-06 14:48 | NUR ---
Clinical review faxed to [facility] at [phone]
[2017-11-06 16:00] VITALS: BP 139/62
[2017-11-06] MEDS: SODIUM BICARBONATE 650 MG TAB PO SCH (17:45)
[2017-11-06] MEDS: WARFARIN 1 MG TAB PO SCH (17:45)
--- NOTE | 2017-11-06 17:48 | NUR ---
ADMINISTERED MEDICATION ORDERED. PATIENT TOLERATED IT WELL. SON AT BEDSIDE. SAFETY PRECAUTIONS IN PLACE, CALL LIGHT WITHIN REACH. WILL CONTINUE TO MONITOR PATIENT.
--- NOTE | 2017-11-06 18:30 | NUR ---
PT C/O HEADACHE. TYLENOL PRN GIVEN. NO SIGNS OF DISTRESS OR SOB NOTED. PATIENT EATING DINNER. FAMILY AT BEDSIDE. SAFETY PRECAUTIONS IN PLACE. CALL LIGHT WITHIN REACH. WILL CONTINUE TO MONITOR PATIENT.
--- NOTE | 2017-11-06 19:10 | NUR ---
REPORT GIVEN TO NUTRITIONAL ASSISTANT RN AT BEDSIDE FOR CONTINUITY OF CARE. PATIENT IN STABLE CONDITION.
--- NOTE | 2017-11-06 19:18 | NUR ---
LAB CALLED TO REPORT CRITICAL TROPONIN VALUE 0.234. TROPONIN TRENDING DOWN.
[2017-11-06 19:25] LABS: CREATINE KINASE MB 1.5 ng/mL (0-3.6)
[2017-11-06 20:00] VITALS: BP 132/80
--- NOTE | 2017-11-06 21:20 | NUR ---
DIALYSIS NURSE, JEEVAN, ABOUT TO START DIALYSIS ON PT. GAVE HER DR ORDER FOR HEMODIALYSIS, LATEST LABS, AND 2L NS.
[2017-11-06] MEDS: ONDANSETRON 4 MG/2 ML VIAL IVP PRN (23:55)
[2017-11-07] VITALS: BP 149/82
--- NOTE | 2017-11-07 00:30 | NUR ---
DIALYSIS NURSE DONE, NOW LEAVING. PT IN STABLE CONDITION, VITAL SIGNS STABLE. WILL CONTINUE TO MONITOR.
[2017-11-07] MEDS: SODIUM BICARBONATE 650 MG TAB PO SCH ×5 (00:55→17:21)
[2017-11-07] MEDS: METOPROLOL 25 MG TAB PO SCH ×2 (09:00→21:37)
[2017-11-07] MEDS: amLODIPine 5 MG TAB PO SCH (09:00)
--- NOTE | 2017-11-07 10:30 | NUR ---
IV CAME OFF FROM RIGHT AC, CATHETER TIP INTACT, NO ACTIVE BLEEDING SEEN
[2017-11-07] MEDS ORDERED: ALBUTEROL SULFATE/IPRATROPIU 3 ML SOL IH PRN (10:55)
--- NOTE | 2017-11-07 11:15 | NUR ---
PATIENT IS ASLEEP, EASILY AROUSABLE BY NAME. RESPIRATIONE EVEN, UNLABOR ON 2L NC. VS IS STABLE. DENIED SOB AT THIS TIME. COMPLAINED OF DIZZINESS. DR GONZALEZ WAS AT BEDSIDE. CALL LIGHT WITHIN REACH.
[2017-11-07] MEDS: BLOOD GLUCOSE MONITORING 1 DEV DEV FS SCH ×4 (11:30→21:33)
[2017-11-07 12:00] VITALS: BP 127/65
[2017-11-07 12:23] LABS: HEPATITIS A ANTIBODY IGM Negative (Negative); HEPATITIS B CORE AB TOTAL Negative (Negative); HEPATITIS B SURFACE ANTIBODY Non Reactive (.); HEPATITIS B SURFACE ANTIGEN Negative (Negative)
[2017-11-07] MEDS ORDERED: methylPREDNISolone SS 40 MG/ML VIAL ONE (13:31)
[2017-11-07 15:28] LABS: POTASSIUM 3.5 mmol/L (3.5-5.1)
[2017-11-07 15:29] LABS: ANION GAP 12.5 (8-16); CREATININE 3.9 mg/dL (0.6-1.3)
--- NOTE | 2017-11-07 15:30 | NUR ---
PATIENT IS SLEEPING, EASILY AROUSABLE. RESPIRATION EVEN, UNLABOR ON 2L NC. DENIED PAIN AT THIS TIME. DIALYSIS AT BEDSIDE. CALL LIGHT WITHIN REACH
[2017-11-07 15:37] LABS: HEMOGLOBIN 8.5 g/dL (12.0-16.0); MEAN CORPUSCULAR HEMOGLOBIN 25 pg (27-31); MEAN CORPUSCULAR HGB CONC 31 g/dL (33-37); MEAN CORPUSCULAR VOLUME 80 fL (80-94); PLATELET COUNT (AUTO) 236 K/uL (140-450); RED BLOOD CELL COUNT(AUTO) 3.38 MIL/uL (4.20-5.40); RED CELL DISTRIBUTION WIDTH 17.2 % (11.6-13.7); WHITE BLOOD COUNT (AUTO) 10.7 K/uL (4.8-10.8)
[2017-11-07] MEDS: methylPREDNISolone SS 40 MG/ML VIAL IVP SCH (15:37)
[2017-11-07 15:38] LABS: LYMPHOCYTES % (MANUAL) 5 % (20-46); MONOCYTES % (MANUAL) 10 % (5-12)
[2017-11-07 15:58] LABS: PROTHROMBIN TIME 12.4 secs (10.8-13.4)
[2017-11-07 16:00] VITALS: BP 151/54
--- NOTE | 2017-11-07 16:57 | NUR ---
NEW IV 24G WAS PLACED ON THE RIGHT THUMB. PATIENT TOLERATED WELL
[2017-11-07] MEDS ORDERED: SODIUM BICARBONATE 650 MG TAB ONE ×2 (17:19→21:18)
[2017-11-07] MEDS ORDERED: WARFARIN 1 MG TAB ONE (17:19)
[2017-11-07] MEDS: WARFARIN 1 MG TAB PO SCH (17:30)
--- NOTE | 2017-11-07 18:30 | NUR ---
PATIENT IS SLEEPING COMFORTABLY. RESPIRATION EVEN, UNLABOR ON 2L NC. DIALYSIS IS DONE WITH 1L FLUID WITHDRAWN. NO DISTRESS NOTED AT THIS TIME. CALL LIGHT WITHIN REACH
[2017-11-07] MEDS ORDERED: ALBUTEROL SULFATE/IPRATROPIU 3 ML SOL IH ONE (18:56)
--- NOTE | 2017-11-07 19:32 | NUR ---
ENDORSEMENT GIVEN TO THE INVESTMENT SPECIALIST NURSE. PATIENT IS STABLE AT THIS TIME
--- NOTE | 2017-11-07 19:35 | NUR ---
RECEIVED PT IN STABLE CONDITION FROM AM NURSE. AWAKE,ALERT AND ORIENTED X4. ON TELE -SR. SITTING ON CHAIR. ON O22L/NC. WITH NO DISTRESS NOTED. NO C/O ANY PAIN. WITH HL LT THUMB #24. CLEAR AND PATENT. PT ON HD WITH ACCESS ON RT INTERNAL JUGULAR BILLY CATH . PT HAS SWELLING ON BOTH LOWER EXTREMITIES. PLAN OF CARE DISCUSSED AND VERBALIZED UNDERSTANDING. BED ON LOW POSITION , SIDE RAILS UP X2. CALL LIGHT PLACED WITHIN EASY REACH. WILL CONTINUE TO MONITOR.
[2017-11-07 20:00] VITALS: BP 150/63
[2017-11-07] MEDS ORDERED: METOPROLOL 50 MG TAB ONE (21:18)
[2017-11-07] MEDS ORDERED: METOPROLOL 25 MG TAB ONE (21:35)
[2017-11-07] MEDS: INSULIN LISPRO SLIDING SCALE 100 UNITS/ML VIAL SUBQ PRN (22:07)
--- NOTE | 2017-11-07 22:07 | NUR ---
BLOOD SUGAR WAS CHECKED RESULT 246, INSULIN COVERAGE HUMALOG 4 UNITS SUBQ GIVEN . PROVIDED WITH SOME SNACKS.
[2017-11-08] VITALS (12 sets, daily range): BP systolic 139–183; BP diastolic 63–85
[2017-11-08] MEDS: SODIUM BICARBONATE 650 MG TAB PO SCH ×3 (00:35→13:38)
--- NOTE | 2017-11-08 00:50 | NUR ---
IV ACCESS ON THE LT THUMB WAS ACCIDENTALLY PULLED OUT. STARTED A NEW IV ACCESS ON THE RT WRIST #24. CLEAR AND PATENT.
--- NOTE | 2017-11-08 03:35 | NUR ---
PT KEPT NPO . FOR PLACEMENT TUNNELED HEMODIALYSIS CATHETER BY DR. OCAMPO. PT MADE AWARE AND VERBALIZED UNDERSTANDING. CONSENT WAS SIGNED BY PT.
[2017-11-08] MEDS ORDERED: SODIUM BICARBONATE 650 MG TAB ONE (05:26)
[2017-11-08] MEDS: BLOOD GLUCOSE MONITORING 1 DEV DEV FS SCH ×4 (06:25→20:55)
[2017-11-08] MEDS: INSULIN LISPRO SLIDING SCALE 100 UNITS/ML VIAL SUBQ PRN ×3 (06:35→20:59)
--- NOTE | 2017-11-08 07:34 | NUR ---
ENDORSED PT IN STABLE CONDITION TO AM NURSE.
--- NOTE | 2017-11-08 07:35 | NUR ---
RECEIVED REPORT FROM HEEL STAINER RN AT BEDSIDE FOR CONTINUITY OF CARE. AWAKE,ALERT AND ORIENTED X4. ON TELE -SR, LYING IN BED. ON O2 2L/NC. WITH NO DISTRESS NOTED. NO C/O ANY PAIN. IV #24G ON RIGHT WRIST SALINE LOCKED, CLEAR AND PATENT. PT ON HD WITH ACCESS ON RT INTERNAL JUGULAR BILLY CATH . PT HAS SWELLING ON BOTH LOWER EXTREMITIES. PLAN OF CARE DISCUSSED AND VERBALIZED UNDERSTANDING. BED ON LOW POSITION , SIDE RAILS UP X2. CALL LIGHT WITHIN REACH. WILL CONTINUE TO MONITOR PATIENT.
[2017-11-08 07:47] LABS: BASOPHILS % (AUTO) 0.2 % (0.0-2.0); EOSINOPHILS % (AUTO) 0.6 % (0.0-4.0); HEMATOCRIT 23.5 % (36-48); HEMOGLOBIN 7.6 g/dL (12.0-16.0); LYMPHOCYTES # (AUTO) 0.6 K/uL (2.5-16.5); MEAN CORPUSCULAR HEMOGLOBIN 26 pg (27-31); MEAN CORPUSCULAR HGB CONC 33 g/dL (33-37); MEAN CORPUSCULAR VOLUME 79 fL (80-94); MONOCYTES # (AUTO) 0.6 K/uL (0.8-1.0); NEUTROPHILS # (AUTO) 5.8 K/uL (1.8-7.7); NEUTROPHILS % (AUTO) 83.2 % (42.2-75.2); PLATELET COUNT (AUTO) 226 K/uL (140-450); RED BLOOD CELL COUNT(AUTO) 2.98 MIL/uL (4.20-5.40); RED CELL DISTRIBUTION WIDTH 16.2 % (11.6-13.7)
--- NOTE | 2017-11-08 08:06 | NUR ---
XRAY TECHS IN TO TAKE CHEST XRAY OF PATIENT. SAFETY PRECAUTIONS IN PLACE, CALL LIGHT WITHIN REACH. WILL CONTINUE TO MONITOR PATIENT.
[2017-11-08 08:08] LABS: PROTHROMBIN TIME 12.6 secs (10.8-13.4)
[2017-11-08] MEDS ORDERED: amLODIPine 5 MG TAB ONE ×2 (08:16→08:29)
[2017-11-08] MEDS ORDERED: METOPROLOL 50 MG TAB ONE ×2 (08:17→08:28)
[2017-11-08] MEDS ORDERED: FUROSEMIDE 40 MG/4 ML VIAL IVP ONE (08:18)
[2017-11-08 08:28] LABS: ANION GAP 11.1 (8-16); CREATININE 3.1 mg/dL (0.6-1.3); POTASSIUM 4.1 mmol/L (3.5-5.1)
[2017-11-08 08:34] LABS: ALBUMIN 1.7 g/dL (3.4-5.0); TOTAL BILIRUBIN 0.2 mg/dL (0.0-1.0)
[2017-11-08] MEDS: amLODIPine 5 MG TAB PO SCH (08:35)
[2017-11-08] MEDS ORDERED: VANCOMYCIN PER PHARMACY MC PRN ×2 (08:35→18:50)
[2017-11-08] MEDS: METOPROLOL 25 MG TAB PO SCH ×2 (08:37→23:58)
[2017-11-08] MEDS ORDERED: VANCOMYCIN 1GM/DEXT 5% PREMIX 200 ML IV SCH (09:00)
[2017-11-08] MEDS ORDERED: FUROSEMIDE 40 MG/4 ML VIAL IVP SCH (09:00)
[2017-11-08] MEDS ORDERED: LIDOCAINE 1% 50 ML ONE (10:10)
[2017-11-08] MEDS ORDERED: BUPIVACAINE-MPF 0.25% 30 ML VIAL INJ ONE (10:10)
--- NOTE | 2017-11-08 10:11 | NUR ---
TWO OR NURSES TOOK PATIENT TO OR FOR TUNNEL CATHETER PROCEDURE.
[2017-11-08] MEDS ORDERED: ONDANSETRON 4 MG/2 ML VIAL ONE (10:41)
[2017-11-08] MEDS ORDERED: PROPOFOL 200 MG/20 ML VIAL IV ONE (10:41)
[2017-11-08] MEDS ORDERED: SEVOFLURANE 250 ML BTL INH ONE (10:41)
[2017-11-08] MEDS ORDERED: fentaNYL 0.05 MG/ML VIAL ONE (10:46)
[2017-11-08] MEDS ORDERED: MIDAZOLAM 2 MG/2 ML VIAL ONE (10:47)
[2017-11-08] MEDS ORDERED: MORPHINE SULFATE 4 MG/ML SYR ONE (10:47)
[2017-11-08] MEDS ORDERED: MORPHINE SULFATE 2 MG/ML SYR IVP PRN (11:40)
[2017-11-08] MEDS ORDERED: MIDAZOLAM 2 MG/2 ML VIAL IV ONE (11:40)
[2017-11-08] MEDS ORDERED: MORPHINE SULFATE 4 MG/ML SYR IVP PRN ×2 (11:40)
[2017-11-08] MEDS ORDERED: METOCLOPRAMIDE 10 MG/2 ML INJ VIAL IVP PRN (11:40)
--- NOTE | 2017-11-08 11:55 | NUR ---
PATIENT COUGHING, REQUESTED SOMETHING FOR IT. MD NOTIFIED, PER MD ORDER, PALOMOSIN GIVEN PRN. NO SIGNS OF DISTRESS OR SOB NOTED, PATIENT DENIES PAIN. SAFETY PRECAUTIONS IN PLACE, CALL LIGHT WITHIN REACH. WILL CONTINUE TO MONITOR PATIENT. Addendum: 11/08/17 at 1403 by Umair Bruner RN WRONG PATIENT.
--- NOTE | 2017-11-08 12:16 | NUR ---
Patient will have outpatient dialysis with [facility]. all papers faxed to [facility]. [employer] manager jeanna need to arrange transportation when schedule available. need PT eval before arrange home PT.
--- NOTE | 2017-11-08 12:40 | NUR ---
PATIENT BACK ON FLOOR ACCOMPANIED BY 2 RNS. PATIENT BACK ON 2L O2 NC. SAFETY PRECAUTIONS IN PLACE, BED ON LOWEST SETTING, CALL LIGHT WITHIN REACH. WILL CONTINUE TO MONITOR PATIENT.
--- NOTE | 2017-11-08 13:15 | NUR ---
PT NOTE 1310 RECEIVED ORDER FOR PT EVAL. RN WAS IN Pt's ROOM, Pt WAS SEEN ASLEEP AND HAS JUST RETURNED FROM [facility] C[facility] PLACEMENT. WEIGHT WAS ON SX SITE R CHEST AND PER RN Pt HAS TO STAY IN BED POST OP; WILL FOLLOW UP W/Pt TOMORROW. PVE(1)
--- NOTE | 2017-11-08 13:36 | NUR ---
home PT is to be arranged by [facility] per [facility] social work case manager. [facility] number called at [phone] and left a message with social work case manager.
[2017-11-08] MEDS: methylPREDNISolone SS 40 MG/ML VIAL IVP SCH (13:39)
--- NOTE | 2017-11-08 14:15 | NUR ---
PER MD ORDER, PATIENT IS OFF NPO AND NOW ON CCHO RENAL DIET. DIETARY WAS CALLED FOR A LATE TRAY FOR PATIENT. SAFETY PRECAUTIONS IN PLACE, NO SIGNS OF DISTRESS OR SOB NOTED. WILL CONTINUE TO MONITOR PATIENT.
--- NOTE | 2017-11-08 16:40 | NUR ---
CALLED [facility], REQUESTED FOR DIALYSIS FOR PATIENT TODAY ORDERED BY MD. PATIENT IS SLEEPING. NO SIGNS OF DISTRESS OR SOB NOTED. SAFETY PRECAUTIONS IN PLACE, CALL LIGHT WITHIN REACH. WILL CONTINUE TO MONITOR PATIENT.
--- NOTE | 2017-11-08 16:56 | NUR ---
11/08/2017 RD INITIAL ASSESSMENT COMPLETED PLEASE REFER TO NUTRITION ASSESSMENT UNDER CARE ACTIVITY FOR ESTIMATED NUTRITIONAL NEEDS. 1. CONTINUE 60 GM CCHO/RENAL DIET. 2. PT TO CONSUME >75% ESTIMATED ENERGY AND PROTEIN NEEDS WITHIN 2-[address] TO FOLLOW-UP IN 2-3 DAYS PATIENT IS HIGH RISK. QI GONZALEZ, RD
[2017-11-08] MEDS ORDERED: WARFARIN 2.5 MG TAB PO SCH (17:00)
[2017-11-08] MEDS: WARFARIN 1 MG TAB PO SCH (17:17)
[2017-11-08] MEDS ORDERED: LEVOFLOXACIN 500 MG/D5W PREMIX 100 ML IV SCH (19:00)
--- NOTE | 2017-11-08 19:25 | NUR ---
JEEVAN DIXON, AUTOMOBILE DETAILER, CALLED THE FLOOR. SAID DIALYSIS WILL BE AT 2100. FAMILY AT BEDSIDE, PATIENT EATING DINNER. SAFETY PRECAUTIONS IN PLACE, CALL LIGHT WITHIN REACH. WILL CONTINUE TO MONITOR PATIENT.
--- NOTE | 2017-11-08 19:28 | NUR ---
GAVE REPORT TO SALESFORCE SPECIALIST RN AT BEDSIDE FOR CONTINUITY OF CARE. PATIENT IN STABLE CONDITION.
--- NOTE | 2017-11-08 19:30 | NUR ---
RECEIVED PT IN STABLE CONDITION FROM AM NURSE. AWAKE,ALERT AND ORIENTED X4. ON BEDREST. WITH TELE MONITOR. FAMILY AT BEDSIDE. NO C/O ANY DISCOMFORT NOR DISTRESS NOTED. ON O22L/NC. L ON THE RT WRIST #24. NEW RT SUBCLAVIAN AUTUMN SPLIT TUNNELED CATH. CLEAR AND PATENT. PLAN OF CARE DISCUSSED AND VERBALIZED UNDERSTANDING. BED ON LOW POSITION, CALL LIGHT WITHIN EASY REACH. WILL CONTINUE TO MONITOR.
[2017-11-08] MEDS: ONDANSETRON 4 MG/2 ML VIAL IVP PRN (19:57)
--- NOTE | 2017-11-08 19:57 | NUR ---
C/O VOMITING AFTER EATING DINNER. MEDICATED WITH ZOFRAN IVP ORDERED. WILL CONTINUE TO MONITOR.
--- NOTE | 2017-11-08 20:45 | NUR ---
HD NURSE HERE AND STARTED HD FOR PT.
--- NOTE | 2017-11-08 21:00 | NUR ---
BP MED LOPRESSOR HELD . PT IS ON DIALYSIS A T THIS TIME.
[2017-11-08] MEDS ORDERED: CEFEPIME 1,000 MG VIAL ONE (21:39)
[2017-11-08] MEDS: CEFEPIME 1,000 MG in DEXTROSE 5% 50 ML IV SCH (21:46)
--- NOTE | 2017-11-08 23:40 | NUR ---
HD DONE WITH 3 LITERS OUTPUT PER HD NURSE . BP IS ELEVATED POST DIALYSIS 176/75. WILL GIVE THE LOPRESSOR THAT WAS HELD EARLIER.
--- NOTE | 2017-11-09 00:20 | NUR ---
PT ASSISTED TO BATHROOM. PT UNSTEADY. VOIDED AROUND 120 ML URINE. O2 SAT 96% ON ROOM AIR. NO SOB NOTED.
--- NOTE | 2017-11-09 01:14 | NUR ---
DR. GONZALEZ CALLED AND ASKED HOW PT IS DOING. MADE AWARE ABOUT THE SWOLLEN LT ARM/HAND. HE SAID TO ELEVATE THE EXTREMITY.
--- NOTE | 2017-11-09 02:30 | NUR ---
MADE ROUNDS . PT IS ASLEEP. NO S/S OF ANY DISCOMFORT NOR PAIN NOTED. WILL CONTINUE TO MONITOR.
[2017-11-09 03:46] VITALS: BP 160/73
--- NOTE | 2017-11-09 03:57 | NUR ---
STILL NEED SPUTUM SPECIMEN FOR CULTURE . NO COUGH NOTED DURING THE NIGHT.
[2017-11-09 05:18] VITALS: BP 146/71
--- NOTE | 2017-11-09 05:21 | NUR ---
LATEST BP TAKEN 146/71. NO DISCOMFORT NOR PAIN NOTED.
[2017-11-09] MEDS: BLOOD GLUCOSE MONITORING 1 DEV DEV FS SCH ×4 (06:22→20:48)
[2017-11-09] MEDS: INSULIN LISPRO SLIDING SCALE 100 UNITS/ML VIAL SUBQ PRN ×3 (06:23→20:48)
--- NOTE | 2017-11-09 06:23 | NUR ---
BLOOD SUGAR THIS AM 165. 2 UNITS HUMALOG COVERAGE GIVEN.
--- NOTE | 2017-11-09 07:10 | NUR ---
ENDORSED PT IN STABLE CONDITION TO AM NURSE.
--- NOTE | 2017-11-09 07:11 | NUR ---
RECEIVED REPORT FROM HEAT ENGINEERING TEACHER RN AT BEDSIDE FOR CONTINUITY OF CARE. UPDATED BOARD. PATIENT IS ASLEEP, ON BEDREST. WITH TELE MONITOR. NO C/O ANY DISCOMFORT NOR DISTRESS NOTED. ON O22L/NC. L ON THE RT WRIST #24. NEW RT SUBCLAVIAN AUTUMN SPLIT TUNNELED CATH. CLEAR AND PATENT. BED ON LOW POSITION, CALL LIGHT WITHIN EASY REACH. WILL CONTINUE TO MONITOR.
[2017-11-09 07:38] LABS: BASOPHILS % (AUTO) 0.4 % (0.0-2.0); EOSINOPHILS # (AUTO) 0.1 K/uL (0-0.4); EOSINOPHILS % (AUTO) 0.7 % (0.0-4.0); HEMATOCRIT 23.9 % (36-48); HEMOGLOBIN 7.8 g/dL (12.0-16.0); LYMPHOCYTES # (AUTO) 0.6 K/uL (2.5-16.5); LYMPHOCYTES % (AUTO) 7.8 % (20.5-51.1); MEAN CORPUSCULAR HEMOGLOBIN 26 pg (27-31); MEAN CORPUSCULAR HGB CONC 33 g/dL (33-37); MEAN CORPUSCULAR VOLUME 80 fL (80-94); MONOCYTES # (AUTO) 0.7 K/uL (0.8-1.0); MONOCYTES % (AUTO) 9.1 % (1.7-9.3); NEUTROPHILS # (AUTO) 6.7 K/uL (1.8-7.7); PLATELET COUNT (AUTO) 202 K/uL (140-450); RED BLOOD CELL COUNT(AUTO) 3.01 MIL/uL (4.20-5.40); RED CELL DISTRIBUTION WIDTH 15.9 % (11.6-13.7)
[2017-11-09 07:52] LABS: ALBUMIN 1.8 g/dL (3.4-5.0); ANION GAP 12.9 (8-16); CARBON DIOXIDE 27.3 mmol/L (21-32); CREATININE 3.7 mg/dL (0.6-1.3); POTASSIUM 4.2 mmol/L (3.5-5.1); TOTAL BILIRUBIN 0.2 mg/dL (0.0-1.0)
[2017-11-09 08:00] VITALS: BP 148/77
[2017-11-09] MEDS: amLODIPine 5 MG TAB PO SCH (08:34)
[2017-11-09] MEDS: METOPROLOL 25 MG TAB PO SCH ×2 (08:34→20:28)
--- NOTE | 2017-11-09 08:38 | NUR ---
ADMINISTERED MORNING MEDICATIONS. PATIENT TOLERATED THEM WELL. PATIENT EATING BREAKFAST. LEFT ARM ELEVATED ON PILLOW. SAFETY PRECAUTIONS IN PLACE, CALL LIGHT WITHIN REACH. WILL CONTINUE TO MONITOR PATIENT.
--- NOTE | 2017-11-09 08:50 | NUR ---
DR. KIM IN TO SEE THE PATIENT.
[2017-11-09 08:54] LABS: WHITE BLOOD COUNT (AUTO) 8.1 K/uL (4.8-10.8)
[2017-11-09] MEDS: FUROSEMIDE 40 MG/4 ML VIAL IVP SCH ×2 (09:31→17:26)
--- NOTE | 2017-11-09 10:15 | NUR ---
PT IN TO SEE THE PATIENT. WILL AWAIT RESULTS.
--- NOTE | 2017-11-09 10:36 | NUR ---
SPOKE WITH RONNIE FROM [facility] AND SHE SAID THIS PATIENT IS ON A 7 DAY BED AND THEY WILL TAKE THE PATIENT BACK. SHE WAS THERE FOR PT AND OT. I INFORMED HER THAT THE PATIENT WILL BE ON HD OUT PATIENT. I CALLED [facility] AND SPOKE WITH GUILHERME. SHE SAID SHE TAKES CARE OF THE SNF AND THAT I WOULD HAVE THE FILL OUT THE [facility] TRANSPORTATION REQUEST FORM. ALSO THE OP HD GOES THROUGH [facility]. I CALLED [facility], AND SPOKE WITH Jud CALVIN22. HE SAID TO FAX THE DIALYSIS INFORMATION TO HIM AT [phone].
--- NOTE | 2017-11-09 11:15 | NUR ---
I met with patient briefly to discuss, information provided previously during screen. I discuss with patient about plan for discharge; Patient stated wanting to go back to [facility]/SNF. I asked Patient if she remember me talking to her couple days ago during screen and asking her about services provided to her at home, and she reported to me living at home with . Patient stated " I do remember but I must have been confused and tired, that I forgot to mention that I am receiving services at [facility] " I asked Patient if she will still like to go back to same facility. Patient stated " Yes I will like to go back to [facility] after discharge" I thank patient for information and left patient resting.
[2017-11-09 12:00] VITALS: BP 146/64
[2017-11-09] MEDS: hydrALAZINE 25 MG TAB PO SCH ×2 (12:07→20:28)
[2017-11-09] MEDS: methylPREDNISolone SS 40 MG/ML VIAL IVP SCH (12:07)
[2017-11-09] MEDS: ACETAMINOPHEN 325 MG TAB PO PRN (12:08)
--- NOTE | 2017-11-09 12:15 | NUR ---
ADMINISTERED ORDERED MEDICATIONS. PATIENT TOLERATED THEM WELL. PATIENT IS EATING LUNCH. NO SIGNS OF DISTRESS OR SOB NOTED. SAFETY PRECAUTIONS IN PLACE, BED ON LOWEST SETTING, CALL LIGHT WITHIN REACH. WILL CONTINUE TO MONITOR PATIENT.
--- NOTE | 2017-11-09 12:46 | NUR ---
[facility] FAXED INFORMATION TO HER AT [phone]
--- NOTE | 2017-11-09 14:10 | NUR ---
PATIENT RESTING COMFORTABLY, NO SIGNS OF DISTRESS OR SOB NOTED. SAFETY PRECAUTIONS IN PLACE, WILL CONTINUE TO MONITOR PATIENT.
[2017-11-09] MEDS ORDERED: VANCOMYCIN 1GM/DEXT 5% PREMIX 200 ML IV SCH (15:00)
--- NOTE | 2017-11-09 15:18 | NUR ---
RECEIVED A CALL FROM VALDEMAR FROM [facility]. THE PATIENT'S CHAIR TIME WILL BE , SUNDAY AND SUNDAY AT 1:15P.M. ON IST , SUNDAY, PATIENT NEEDS TO BE THERE AT 12:15P.M. SINCE PAPERS FOR DIALYSIS AT [facility] NEEDS TO BE SIGNED BEFORE IST DIALYSIS AND THEY DO NOT DO THIS ON WEEKENDS, THE IST DIALYSIS WILL BE ON Sunday11/13/17. I CALLED DR. GONZALEZ AND INFORMED HIM AND HE SAID HE WOULD WRITE ORDER FOR HD FOR TOMORROW AND THEN TO [facility] [place]. I FILLED OUT THE [facility] TRANSPORTATION REQUEST FORM AND FAXED IT TO [phone]. I CALLED [facility] AND SPOKE WITH RONNIE AND FAXED CLINICALS AND INFORMED HER ABOUT THE DIALYSIS. SHE SAID THE PATIENT CAN COME BACK TO THEM TOMORROW TO ROOM [address] RUFF. ADDRESS FOR [facility] IS [address] [place] [address] PHONE [phone]. I CALLED GUILHERME AT [facility] AND GAVE HER VERBAL REPORT.
--- NOTE | 2017-11-09 15:35 | NUR ---
SPOKE WITH GUILHERME FROM [facility]. AUTH FOR [place] [facility] [place] [facility] IS [id number]. AUTH FOR [facility] [place] [id number], RONNIE FROM [facility] AWARE.
[2017-11-09 16:00] VITALS: BP 168/73
--- NOTE | 2017-11-09 17:00 | NUR ---
BLOOD SUGAR 195, INSULIN GIVEN. PATIENT RESTING IN BED. FAMILY AT BEDSIDE. NO SIGNS OF DISTRESS OR SOB NOTED. SAFETY PRECAUTIONS IN PLACE. WILL CONTINUE TO MONITOR PATIENT.
[2017-11-09] MEDS: WARFARIN 1 MG TAB PO SCH (17:19)
--- NOTE | 2017-11-09 18:50 | NUR ---
PATIENT BLOOD PRESSURE 180/79. DR. HUSSAIN JAFFE.
--- NOTE | 2017-11-09 19:20 | NUR ---
GAVE REPORT TO LIQUID CENTER ASSEMBLER NURSE, CARMELITA, AT BEDSIDE FOR CONTINUITY OF CARE. PATIENT IN STABLE CONDITION.
--- NOTE | 2017-11-09 19:22 | NUR ---
RECEIVED PT AWAKE TALKING TO FAMILY MEMBERS AT BEDSIDE, VITAL SIGNS TAKEN, BP SLIGHTLY ELEVATED, ASYMPTOMATIC, DENIES ANY PAIN, NO SOB NOTED, WILL GIVE DUE BP MEDICATION, SAT-93-95% ON ROOM AIR, WITH HD CATH TO RT UPPER CHEST, DRESSING DRY AND INTACT, PLAN OF CARE DISCUSS, FOR DC TOMORROW TO [facility] AFTER HEMODIALYSIS, PT FAMILY WANTS TO TALK TO CM TOMORROW CONCERNING OTHER OPTION BESIDES [facility], WILL ENDORSE TO AM RN, SAFETY MEASURE IN PLACE, CALL LIGHT WITHIN REACH.
[2017-11-09 20:00] VITALS: BP 160/73
[2017-11-09] MEDS: CEFEPIME 1,000 MG in DEXTROSE 5% 50 ML IV SCH (20:28)
--- NOTE | 2017-11-09 21:00 | NUR ---
JEEVAN CALLED AND MADE AWARE OF HEMODIALYSIS SCHEDULE TOMORROW, BLOOD SUGAR CHECKED WITH 230 RESULT, COVERAGE GIVEN, DUE MEDS ADMINISTERED, ALL NEEDS ATTENDED.
--- NOTE | 2017-11-09 21:10 | NUR ---
PATIENT UNABLE TO PRODUCE SPUTUM
--- NOTE | 2017-11-09 22:50 | NUR ---
DR CORRALES HERE AND SAW THE PT, PER KELLY DEXTER FOR PT TO BE DISCHARGE TOMORROW, NO NEW ORDER.
[2017-11-10] VITALS: BP 157/76
--- NOTE | 2017-11-10 | NUR ---
PT SLEEPING, EASILY AROUSABLE, VITAL SIGNS TAKEN, BP SLIGHT ELEVATED BUT TRENDING DOWN, ASYMPTOMATIC, CONTINUE TO MONITOR CLOSELY.
[2017-11-10 04:00] VITALS: BP 164/71
--- NOTE | 2017-11-10 04:00 | NUR ---
PT SLEEPING, EASILY AROUSABLE, VITAL SIGNS TAKEN, BP SLIGHTLY ELEVATED, ASYMPTOMATIC, WILL GIVE DUE BP MEDICATION, PT AMBULATED TO BR WITH ASSIST, VOIDED FREELY, PT ACCIDENTALLY PULLED OUT IV LINE WHILE GETTING BACK TO BED, WILL RESTART A NEW IV LINE, RT NECK DRESSING SOILED, NEW DRESSING APPLIED TO PREVIOUS DIALYSIS CATH SITE, NO DRAINAGE OR ANY SIGNS OF INFECTION NOTED, PT SAID JUST TENDERNESS TO SITE, MONITORED CLOSELY.
[2017-11-10] MEDS: hydrALAZINE 25 MG TAB PO SCH ×2 (04:09→12:12)
[2017-11-10] MEDS: INSULIN LISPRO SLIDING SCALE 100 UNITS/ML VIAL SUBQ PRN ×2 (06:05→13:08)
--- NOTE | 2017-11-10 06:10 | NUR ---
PT SLEEPING, EASILY AROUSABLE, BLOOD SUGAR CHECKED WITH 160 RESULT, COVERAGE GIVEN, NO DISTRESS NOTED, FOR HEMODIALYSIS TODAY, MONITORED CLOSELY.
[2017-11-10] MEDS: BLOOD GLUCOSE MONITORING 1 DEV DEV FS SCH ×2 (06:34→11:49)
--- NOTE | 2017-11-10 07:15 | NUR ---
ENDORSEMENT RECEIVED FROM BICYCLE RACER NURSE. PATIENT IS SLEEPING COMFORTABLY. RESPIRATION EVEN, UNLABOR. SKIN DRY AND WARM. IV PATENT AND INTACT. NO DISTRESS NOTED AT THIS TIME. SAFETY MEASURE IS APPLIED. BED AT LOW POSITION, SIDE RAILS UP. CALL LIGHT WITHIN REACH.
--- NOTE | 2017-11-10 07:17 | NUR ---
PT SLEEPING, NO SIGNS OF DISTRESS, REPORT GIVEN TO LIV TRUJILLO FOR CONTINUITY OF CARE.
[2017-11-10 08:00] VITALS: BP 147/61
[2017-11-10] MEDS: FUROSEMIDE 40 MG/4 ML VIAL IVP SCH (09:00)
[2017-11-10] MEDS: amLODIPine 5 MG TAB PO SCH (09:00)
[2017-11-10] MEDS: METOPROLOL 25 MG TAB PO SCH (09:00)
[2017-11-10 09:48] LABS: PROTHROMBIN TIME 13.3 secs (10.8-13.4)
--- NOTE | 2017-11-10 10:00 | NUR ---
PATIENT IS ASLEEP. RESPIRATION EVEN, UNLABOR ON ROOM AIR. NO DISTRESS NOTED AT THIS TIME. DIALYSIS AT BEDSIDE. PATIENT TOLERATING WELL. CALL LIGHT WITHIN REACH
--- NOTE | 2017-11-10 10:27 | NUR ---
CALLED AND LEFT VOICEMAIL FOR THE PATIENT'S SON, REGARDING HER TRANSFER TO [facility].
[2017-11-10] MEDS: ONDANSETRON 4 MG/2 ML VIAL IVP PRN (11:06)
[2017-11-10 12:00] VITALS: BP 164/61
[2017-11-10] MEDS: ACETAMINOPHEN 325 MG TAB PO PRN (12:12)
[2017-11-10] MEDS: methylPREDNISolone SS 40 MG/ML VIAL IVP SCH (12:12)
--- NOTE | 2017-11-10 12:37 | NUR ---
PATIENT IS AWAKE, ALERT. SITTING AT THE SIDE OF THE BED. RESPIRATION EVEN, UNLABOR. COMPLAINED OF HEADACHE. MED WAS GIVEN PER ORDER. CALL LIGHT WITHIN REACH
--- NOTE | 2017-11-10 12:47 | NUR ---
CALLED AND GAVE REPORT TO DECLAN PECK AT [facility].
--- NOTE | 2017-11-10 14:16 | NUR ---
PATIENT IS SLEEPING COMFORTABLY. RESPIRATION EVEN, UNLABOR ON ROOM AIR. NO DISTRESS NOTED AT THIS TIME. CALL LIGHT WITHIN REACH
[2017-11-10] MEDS ORDERED: FURO-570 PO (15:01)
[2017-11-10 16:00] VITALS: BP 161/76
--- NOTE | 2017-11-10 16:00 | NUR ---
PATIENT COMPLAINED OF CHEST PAIN. VS IS STABLE, EKG SINUS RHYTHM. DR. KIM IS AWARE. WILL CONTINUE WITH DISCHARGE
--- NOTE | 2017-11-10 16:30 | NUR ---
DISCHARGE INSTRUCTION WAS GIVEN TO PATIENT. PATIENT VERBALIZED UNDERSTANDING, STATED SHE CANNOT SIGN THE PAPERWORK. IV WAS REMOVED, CATHETER INTACT, NO ACTIVE BLEEDING SEEN, PATIENT TOLERATED WELL. ID BAND WAS REMOVED. PNEUMO VAC WAS GIVEN TO THE PATIENT PER ORDER. WOUND PICTURE WAS TAKEN. PATIENT IS TRANSFERRED IN WHEELCHAIR. PATIENT IS STABLE AT THIS TIME.
[2017-11-11] MEDS ORDERED: FUROSEMIDE 40 MG TAB PO SCH (08:00)
== END 2017-11-10 16:30 | disposition home or self-care (01) | DRG 469 ==
LOC: MED 13:47 → UNDOADMIN 18:14 → MTU 18:14
PROVIDERS: ADMIT Hospitalist; ATTEND Hospitalist
PROC: 02HV33Z Insertion of Infusion Device into Superior Vena Cava, Percutaneous Approach (ICD-10-PCS; principal; 2017-11-06)
PROC: B548ZZA Ultrasonography of Superior Vena Cava, Guidance (ICD-10-PCS; 2017-11-06)
PROC: 5A1D70Z Performance of Urinary Filtration, Intermittent, Less than 6 Hours Per Day (ICD-10-PCS; 2017-11-06)
PROC: 5A1D70Z Performance of Urinary Filtration, Intermittent, Less than 6 Hours Per Day (ICD-10-PCS; 2017-11-07)
PROC: 02PYX3Z Removal of Infusion Device from Great Vessel, External Approach (ICD-10-PCS; 2017-11-08)
PROC: 0JH60XZ Insertion of Tunneled Vascular Access Device into Chest Subcutaneous Tissue and Fascia, Open Approach (ICD-10-PCS; 2017-11-08)
PROC: 02HV33Z Insertion of Infusion Device into Superior Vena Cava, Percutaneous Approach (ICD-10-PCS; 2017-11-08)
PROC: B5181ZA Fluoroscopy of Superior Vena Cava using Low Osmolar Contrast, Guidance (ICD-10-PCS; 2017-11-08)
PROC: 5A1D70Z Performance of Urinary Filtration, Intermittent, Less than 6 Hours Per Day (ICD-10-PCS; 2017-11-08)
PROC: 5A1D70Z Performance of Urinary Filtration, Intermittent, Less than 6 Hours Per Day (ICD-10-PCS; 2017-11-10)
DX: N17.9 Acute kidney failure, unspecified (principal); J96.01 Acute respiratory failure with hypoxia; E43 Unspecified severe protein-calorie malnutrition; I50.41 Acute combined systolic (congestive) and diastolic (congestive) heart failure; J18.9 Pneumonia, unspecified organism; I42.9 Cardiomyopathy, unspecified; E87.2 Acidosis; E11.22 Type 2 diabetes mellitus with diabetic chronic kidney disease; Z68.41 Body mass index [BMI] 40.0-44.9, adult; N18.6 End stage renal disease; E66.01 Morbid (severe) obesity due to excess calories; D64.9 Anemia, unspecified; E78.5 Hyperlipidemia, unspecified; I13.2 Hypertensive heart and chronic kidney disease with heart failure and with stage 5 chronic kidney disease, or end stage renal disease; J44.0 Chronic obstructive pulmonary disease with (acute) lower respiratory infection; Z79.01 Long term (current) use of anticoagulants; Z99.2 Dependence on renal dialysis; Z87.891 Personal history of nicotine dependence; Z86.73 Personal history of transient ischemic attack (TIA), and cerebral infarction without residual deficits; Z83.3 Family history of diabetes mellitus
CPT/HCPCS: 36415; 36600; 71045; 80048; 80053; 80202; 81001; 82550; 82553; 82803; 82948; 83605; 83735; 83880; 84100; 84484; 85025; 85610; 85730; 86704; 86706; 86708; 86709; 86803; 87040; 87081; 87086; 87340; 87804; 90658; 90732; 90935; 94640; 96374; 99291; C1750; J0456; J0692; J0696; J1644; J1815; J1940; J1956; J2001; J2060; J2250; J2270; J2405; J2704; J2920; J2930; J3010; J3370; J3490; J7030; J7060; J7613; J7620; J7644; Q0092

== ENCOUNTER 2017-11-17 01:58 | Emergency (ER) | payer OTHER ==
[~2017-11-17] VITALS: Ht 160 cm; Wt 106.1 kg
[~2017-11-17 01:58] MED LIST changes: +FURO-570 PO
[2017-11-17 02:12] VITALS: BP 158/66
--- NOTE | 2017-11-17 02:49 | NUR ---
BIBA TO ER BED 1
[2017-11-17 02:50] VITALS: BP 158/66
--- NOTE | 2017-11-17 02:50 | NUR ---
67Y/F PT. BIBA TO ED WITH C/O CONSTIPATION X 2 WK. PER EMS; PT.FROM BOARD AND CARE, CONSTIPATION X 2 WKS, MEDS GIVEN AND HAS BM 20 MINS AGO. STILL HAVING ABDOMINAL PAIN. HX. CHF, ESRD ON HD, DM, COPD. PT DENIES N/V/D; SKIN IS PINK/WARM/DRY; AAOX4, AMBULATES WITH ASSISTIVE DEVICE; LUNGS CLEAR BL; HR EVEN AND REGULAR; PT DENIES ANY FEVER, CP, SOB, OR COUGH AT THIS TIME; PATIENT STATES PAIN OF 9/10 AT THIS TIME; VSS; PATIENT POSITIONED FOR COMFORT; HOB ELEVATED; BEDRAILS UP X2; BED DOWN. ER MD MADE AWARE OF PT STATUS.
[2017-11-20] MEDS ORDERED: AMLO10TA PO (18:39)
[2017-11-20] MEDS ORDERED: WARF1TAB PO (18:39)
[2017-11-20] MEDS ORDERED: METO50TE2 PO (18:39)
[2017-11-20] MEDS ORDERED: FURO-570 PO ×2 (18:39)
[2017-11-20] MEDS ORDERED: HYDR-1100 PO (18:39)
[2017-11-20] MEDS ORDERED: LACT10SO1 PO (18:39)
== END 2017-11-17 04:20 | disposition home or self-care (01) ==
LOC: MED 01:58
DX: K59.00 Constipation, unspecified (principal); E11.22 Type 2 diabetes mellitus with diabetic chronic kidney disease; I13.2 Hypertensive heart and chronic kidney disease with heart failure and with stage 5 chronic kidney disease, or end stage renal disease; I50.9 Heart failure, unspecified; N18.6 End stage renal disease; Z86.2 Personal history of diseases of the blood and blood-forming organs and certain disorders involving the immune mechanism; Z86.718 Personal history of other venous thrombosis and embolism; J44.9 Chronic obstructive pulmonary disease, unspecified
CPT/HCPCS: 99282

== ENCOUNTER 2017-12-06 19:10 | Emergency (ER) | payer OTHER ==
[~2017-12-06] VITALS: Ht 160 cm; Wt 104.8 kg
[~2017-12-06 19:10] MED LIST changes: +ADA30 PO; -AMLO10TA PO; +APIX2.5 PO; +HYDR-1100 PO; +LACT10SO1 PO; -METO25TA PO; +METO50TE2 PO; -WARF1TAB PO
[2017-12-06 19:25] VITALS: BP 146/75
--- NOTE | 2017-12-06 19:45 | NUR ---
PATIENT TO ER BED 2 VIA WHEELCHAIR.
--- NOTE | 2017-12-06 19:47 | NUR ---
PATIENT IS A 67 Y/O FEMALE WHO PRESENTS TO THE ED C/O CHEST PAIN. PT STATES, "I WAS AT DIALYSIS TODAY AND MY CHEST STARTED TO THE HURT." PT REPORTS 4/10 ACHING CHEST PAIN THAT RADIATES TO THE BACK AND ARMS. PT DENIES SOB, N/V/D. NOTED R ARM SHUNT. DIALYSIS SCHEDULE T//. PT AAOX4, RR EVEN/UNLABORED. PT REPOSITIONED FOR COMFORT, BED IN LOWEST POSITION. ER MD DR. LACY NOTIFIED. WILL CONTINUE TO MONITOR.
[2017-12-06] MEDS ORDERED: ASPIRIN 81 MG TAB.CHEW PO ONE (20:15)
[2017-12-06 20:54] LABS: RED CELL DISTRIBUTION WIDTH 17.9 % (11.6-13.7)
[2017-12-06 20:58] LABS: BASOPHILS # (AUTO) 0.1 K/uL (0.00-0.22); BASOPHILS % (AUTO) 0.6 % (0.0-2.0); EOSINOPHILS # (AUTO) 0.2 K/uL (0-0.4); HEMOGLOBIN 8.7 g/dL (12.0-16.0); LYMPHOCYTES # (AUTO) 1.6 K/uL (2.5-16.5); MEAN CORPUSCULAR HEMOGLOBIN 26 pg (27-31); MEAN CORPUSCULAR HGB CONC 32 g/dL (33-37); MEAN CORPUSCULAR VOLUME 81 fL (80-94); MONOCYTES # (AUTO) 0.9 K/uL (0.8-1.0); MONOCYTES % (AUTO) 9.1 % (1.7-9.3); NEUTROPHILS # (AUTO) 7.1 K/uL (1.8-7.7); NEUTROPHILS % (AUTO) 72.3 % (42.2-75.2); PLATELET COUNT (AUTO) 372 K/uL (140-450); RED BLOOD CELL COUNT(AUTO) 3.33 MIL/uL (4.20-5.40); WHITE BLOOD COUNT (AUTO) 9.9 K/uL (4.8-10.8)
[2017-12-06 21:04] LABS: ANION GAP 10.7 (8-16); CARBON DIOXIDE 31.7 mmol/L (21-32); CREATININE 2.5 mg/dL (0.6-1.3); POTASSIUM 3.4 mmol/L (3.5-5.1)
[2017-12-06 21:10] LABS: ALBUMIN 2.3 g/dL (3.4-5.0); TOTAL BILIRUBIN 0.2 mg/dL (0.0-1.0)
[2017-12-06 23:09] VITALS: BP 149/68
--- NOTE | 2017-12-06 23:09 | NUR ---
Patient discharged with v/s stable. Written and verbal after care instructions given and explained. Patient alert, oriented and verbalized understanding of instructions. Ambulatory with steady gait. All questions addressed prior to discharge. ID band removed. Patient advised to follow up with PMD. Rx of FLEXERIL 5MG given. Patient educated on indication of medication including possible reaction and side effects. Opportunity to ask questions provided and answered.
== END 2017-12-06 23:09 | disposition home or self-care (01) ==
LOC: MED 19:10
DX: M94.0 Chondrocostal junction syndrome [Tietze] (principal); E11.22 Type 2 diabetes mellitus with diabetic chronic kidney disease; I12.0 Hypertensive chronic kidney disease with stage 5 chronic kidney disease or end stage renal disease; J44.9 Chronic obstructive pulmonary disease, unspecified; Z99.2 Dependence on renal dialysis
CPT/HCPCS: 36415; 71045; 80053; 83690; 83880; 84484; 85025; 93005; 99285; Q0092

== ENCOUNTER 2020-08-12 10:27 | Emergency (ER) | payer OTHER ==
[~2020-08-12] VITALS: Ht 160 cm; Wt 132.4 kg
[~2020-08-12 10:27] MED LIST changes: -ADA30 PO; +NIFE-184 PO
--- NOTE | 2020-08-12 10:27 | NUR ---
Patient BIBA ALS, transferred to bed 8. RN evaluating patient at bedside.
--- NOTE | 2020-08-12 10:40 | NUR ---
PT BIBA, c/o sob and generalized weakness. pt denies taking any medications. denies any pain at this moment. PMH: HTN, DM, Renal failure with dialysis Left AV shunt, stated last dialysis Sunday08/07/20 [facility] RX: Metoprolol.
[2020-08-12 10:49] VITALS: BP 90/65
--- NOTE | 2020-08-12 10:52 | NUR ---
Dr. Hernandez is evaluating the patient at bedside.
--- NOTE | 2020-08-12 11:04 | NUR ---
flu & covid swab taken, given to label tacker.
--- NOTE | 2020-08-12 11:04 | NUR ---
EKG completed at bedside by EMT.
[2020-08-12 11:19] LABS: BASOPHILS # (AUTO) 0.2 K/uL (0.00-0.22); BASOPHILS % (AUTO) 1.2 % (0.0-2.0); EOSINOPHILS # (AUTO) 0.1 K/uL (0-0.4); EOSINOPHILS % (AUTO) 0.6 % (0.0-4.0); HEMATOCRIT 27.9 % (36-48); LYMPHOCYTES # (AUTO) 0.9 K/uL (2.5-16.5); LYMPHOCYTES % (AUTO) 6.6 % (20.5-51.1); MEAN CORPUSCULAR HEMOGLOBIN 28 pg (27-31); MEAN CORPUSCULAR HGB CONC 32 g/dL (33-37); MEAN CORPUSCULAR VOLUME 85.1 fL (80-94); MONOCYTES # (AUTO) 0.8 K/uL (0.8-1.0); MONOCYTES % (AUTO) 6.4 % (1.7-9.3); NEUTROPHILS # (AUTO) 11.1 K/uL (1.8-7.7); NEUTROPHILS % (AUTO) 85.2 % (42.2-75.2); PLATELET COUNT (AUTO) 351 K/uL (140-450); RED BLOOD CELL COUNT(AUTO) 3.28 MIL/uL (4.20-5.40); RED CELL DISTRIBUTION WIDTH 15.5 % (11.6-13.7)
[2020-08-12] MEDS ORDERED: NACL 0.9% 500 ML IV ONE (11:25)
--- NOTE | 2020-08-12 11:32 | NUR ---
IV inserted to R FA 20G, blood culture drawn and taken to lab.
--- NOTE | 2020-08-12 11:34 | NUR ---
bp currently 128/68, per MD Hernandez to hold IV bolus.
--- NOTE | 2020-08-12 11:38 | NUR ---
pt refused straight cath, unable to produce urine at this moment, pt stated will let nurse know when she needs to urinate.
[2020-08-12] MEDS ORDERED: cefTRIAXone 1,000 MG VIAL ONE (11:46)
[2020-08-12 11:49] LABS: ALBUMIN 2.5 g/dL (3.4-5.0); ANION GAP 26.9 (8-16); CARBON DIOXIDE 19.7 mmol/L (21-32); TOTAL BILIRUBIN 0.6 mg/dL (0.0-1.0)
[2020-08-12 11:52] LABS: CREATININE 12.6 mg/dL (0.6-1.3); POTASSIUM 6.6 mmol/L (3.5-5.1)
--- NOTE | 2020-08-12 11:52 | NUR ---
Potassium 6.6, BUN 94, creatinine 12.6--critical values received from lab. Dr Hernandez made aware
[2020-08-12] MEDS ORDERED: INSULIN REGULAR, HUMAN 100 UNIT/ML VIAL IV ONE (11:55)
[2020-08-12] MEDS ORDERED: DEXTROSE 25% 10 ML SYR IVP ONE (11:55)
[2020-08-12] MEDS ORDERED: SODIUM ZIRCONIUM CYCLOSILICATE 10 GM POWD.PACK PO ONE (12:00)
--- NOTE | 2020-08-12 12:17 | NUR ---
Robert-- [phone] Pt son--call for updates
[2020-08-12] MEDS ORDERED: CALCIUM GLUCONATE 10% 1000 MG/10 ML VIAL IVP ONE (13:00)
[2020-08-12] MEDS ORDERED: ASPIRIN 325 MG TAB PO ONE (13:00)
[2020-08-12 13:40] LABS: PROTHROMBIN TIME 13.9 secs (10.8-13.4)
--- NOTE | 2020-08-12 13:52 | NUR ---
GAVE REPORT TO [facility], SPOKE TO DILLON @ [phone].
--- NOTE | 2020-08-12 13:54 | NUR ---
UNABLE TO COLLECT URINE, PT UNABLE TO PRODUCE URINE AT THIS MOMENT, REFUSING STRAIGHT CATH.
--- NOTE | 2020-08-12 14:08 | NUR ---
[facility] at bedside.
--- NOTE | 2020-08-12 14:10 | NUR ---
Called pt claudio Jones to notify that pt is being transferred to [facility]. Stated understanding.
[2020-08-12 14:12] VITALS: BP 111/82
--- NOTE | 2020-08-12 14:16 | NUR ---
Patient to be transferred to [facility]. Is being transferred due to HIGHER LEVEL OF CARE. Receiving facility has accepting physician and available space. ER physician has signed transfer form. Patient or responsible republican has agreed to transfer and signed form. Patient belongings inventoried and will be sent with patient. Copy of nursing notes, lab reports, EKG, Physicians Orders and X-rays to be sent with patient. Report called to DILLON at receiving facility. [facility] ambulance service has been called for transfer. ETA is [phone].
== END 2020-08-12 14:08 | disposition short-term general hospital (02) ==
LOC: MED 10:27
DX: I21.4 Non-ST elevation (NSTEMI) myocardial infarction (principal); J80 Acute respiratory distress syndrome; E87.6 Hypokalemia; E11.22 Type 2 diabetes mellitus with diabetic chronic kidney disease; I12.0 Hypertensive chronic kidney disease with stage 5 chronic kidney disease or end stage renal disease; N18.6 End stage renal disease; R60.0 Localized edema; Z79.899 Other long term (current) drug therapy
CPT/HCPCS: 36415; 71045; 80053; 82948; 83605; 83690; 83880; 84484; 85025; 85610; 85730; 87040; 87426; 87804; 93005; 96365; 96375; 99291; J0610; J0696; J1644; J1815; J7060